=== PATIENT | female | born 2000 | race Two or more races ===

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

== ENCOUNTER 2022-07-23 19:43 | Emergency (ER) | payer MEDICAID ==
[~2022-07-23] VITALS: Ht 170.2 cm; Wt 65.6 kg
[2022-07-23 20:24] VITALS: BP 106/52
[2022-07-23] MEDS ORDERED: AMOX875T4 PO (22:00)
[2022-07-23] MEDS ORDERED: COR10OTS OT (22:00)
== END 2022-07-23 23:15 | disposition home or self-care (01) ==
LOC: ER 19:45
DX: H66.92 Otitis media, unspecified, left ear (principal); Z88.1 Allergy status to other antibiotic agents
CPT/HCPCS: 70450

== ENCOUNTER 2022-08-31 12:23 | Emergency (ER) | payer MEDICAID ==
[~2022-08-31] VITALS: Ht 170.2 cm; Wt 64.9 kg
[~2022-08-31 12:23] MED LIST: AMOX875T4 PO; COR10OTS OT
[2022-08-31 14:09] VITALS: BP 103/53
[2022-08-31] MEDS ORDERED: CIPR1SUS8 OT (14:59)
[2022-08-31] MEDS ORDERED: CEFU500T43 PO (14:59)
== END 2022-08-31 15:13 | disposition home or self-care (01) ==
LOC: ER 12:23
DX: H66.92 Otitis media, unspecified, left ear (principal); Z79.899 Other long term (current) drug therapy

== ENCOUNTER 2022-11-13 12:28 | Emergency (ER) | payer MEDICAID, OTHER ==
[~2022-11-13] VITALS: Ht 167.6 cm; Wt 60.0 kg
[~2022-11-13 12:28] MED LIST changes: +CEFU500T43 PO; +CIPR1SUS8 OT
[2022-11-13 14:22] VITALS: BP 122/66; PULSE 65; RESP 20; O2SAT 97
[2022-11-13] MEDS ORDERED: ACETAMINOPHEN 325 MG TAB PO ONE (14:45)
[2022-11-13 14:55] VITALS: TEMP 97.9
[2022-11-13] MEDS ORDERED: METH-1181 PO (15:08)
[2022-11-13] MEDS ORDERED: NAPR-746 PO (15:08)
== END 2022-11-13 15:12 | disposition home or self-care (01) ==
LOC: ER 12:28
DX: S16.1XXA Strain of muscle, fascia and tendon at neck level, initial encounter (principal); Z79.899 Other long term (current) drug therapy; V49.88XA Car occupant (driver) (passenger) injured in other specified transport accidents, initial encounter; Y93.89 Activity, other specified; Y92.89 Other specified places as the place of occurrence of the external cause; Y99.8 Other external cause status
CPT/HCPCS: 72040

== ENCOUNTER 2023-07-07 14:07 | Emergency (ER) | payer MEDICAID, OTHER ==
[~2023-07-07] VITALS: Ht 167.6 cm; Wt 74.7 kg
[~2023-07-07 14:07] MED LIST changes: +METH-1181 PO; +NAPR-746 PO
[2023-07-07 14:59] VITALS: RESP 16
[2023-07-07 15:26] LABS: Urine Bacteria None Seen /hpf (None Seen)
[2023-07-07 15:35] LABS: Basophils # (auto) 0.1 10 ^3/uL (0-0.2); Basophils % (auto) 0.6 % (0.0-2.0); Eosinophils # (auto) 0.1 10 ^3/uL (0-0.8); Eosinophils % (auto) 0.6 % (0.0-7.0); Hematocrit 43.5 % (36.0-46.0); Hemoglobin 14.1 g/dL (12.2-16.2); Lymphocytes # (auto) 1.9 10 ^3/uL (0.4-5.4); Lymphocytes % (auto) 19.9 % (10.0-50.0); Mean Corpuscular Hemoglobin 27.4 pg (28.0-32.0); Mean Corpuscular Hgb Conc. 32.5 g/dL (32.0-36.0); Mean Corpuscular Volume 84.5 fL (80.0-100.0); Monocytes # (auto) 0.5 10 ^3/uL (0-1.3); Monocytes % (auto) 5.2 % (0.0-12.0); Neutrophils % (auto) 73.7 % (37.0-80.0); Red Blood Cells 5.15 10^6/uL (4.0-5.20); Red Cell Distribution Width 14.4 % (11.8-14.3); White Blood Cell 9.4 10^3/uL (4.4-10.8)
[2023-07-07 15:45] LABS: Urine Blood 2+ /uL (Negative); Urine Clarity Turbid (Clear); Urine Color Light-Orange (Yellow); Urine Mucus FEW (None Seen); Urine Protein, UAD 3+ (Negative); Urine Specific Gravity 1.032 (1.001-1.035); Urine Urobilinogen Normal (Negative); Urine WBC 7 /hpf (0 - 5); Urine pH 8.5 (5.0-9.0)
[2023-07-07 15:55] LABS: Alanine Aminotransferase 19 U/L (7-40); Albumin 4.8 g/dL (3.2-4.8); Alkaline Phosphatase 90 U/L (46-116); Anion Gap 8 (5-15); Aspartate Aminotransferase 20 U/L (13-40); BUN/Creatinine Ratio 14.5 (10.0-20.0); Blood Urea Nitrogen 10 mg/dL (9-23); Calcium 10.1 mg/dL (8.5-10.1); Carbon Dioxide 28 mmol/L (20-30); Chloride 104 mmol/L (98-107); Glucose 89 mg/dL (74-106); Potassium 4.3 mmol/L (3.5-5.1); Sodium 140 mmol/L (136-145)
[2023-07-07 15:56] LABS: Bilirubin, Total 0.4 mg/dL (0.2-1.0); Total Protein 7.9 g/dL (5.7-8.2)
[2023-07-07 16:49] VITALS: BP 146/70; PULSE 95; TEMP 98; O2SAT 100
== END 2023-07-07 17:07 | disposition home or self-care (01) ==
LOC: ER 14:07
DX: G25.2 Other specified forms of tremor (principal); Z79.899 Other long term (current) drug therapy; Z79.2 Long term (current) use of antibiotics
CPT/HCPCS: 36415; 80053; 81001; 81025; 85025

== ENCOUNTER 2023-11-27 17:39 | Emergency (ER) | payer MEDICAID, OTHER ==
[~2023-11-27] VITALS: Ht 167.6 cm; Wt 63.6 kg
[2023-11-27 17:54] VITALS: PULSE 70; RESP 18; O2SAT 99
[2023-11-27 18:52] LABS: Alanine Aminotransferase 25 U/L (7-40); Albumin 4.6 g/dL (3.2-4.8); Alkaline Phosphatase 84 U/L (46-116); Anion Gap 11 (5-15); Aspartate Aminotransferase 21 U/L (13-40); BUN/Creatinine Ratio 6.5 (10.0-20.0); Bilirubin, Total 0.5 mg/dL (0.2-1.0); Blood Urea Nitrogen 5 mg/dL (9-23); Calcium 9.6 mg/dL (8.7-10.4); Carbon Dioxide 21 mmol/L (20-31); Chloride 108 mmol/L (98-107); Glucose 110 mg/dL (74-106); Sodium 140 mmol/L (136-145); Total Protein 7.9 g/dL (5.7-8.2)
[2023-11-27 18:58] LABS: Urine Bacteria None Seen /hpf (None Seen)
[2023-11-27 19:13] LABS: Urine Blood 3+ /uL (Negative); Urine Clarity Turbid (Clear); Urine Color Yellow (Yellow); Urine Mucus FEW (None Seen); Urine Protein, UAD 4+ (Negative); Urine Specific Gravity 1.024 (1.001-1.035); Urine Urobilinogen 2 mg/dL (Negative); Urine WBC 2 /hpf (0 - 5); Urine pH 8.5 (5.0-9.0)
[2023-11-27 19:23] VITALS: BP 95/51; PULSE 66; RESP 17; TEMP 98.4; O2SAT 100
[2023-11-27] MEDS: POTASSIUM CHL 20 Meq TABLET PO ONE (20:07)
== END 2023-11-27 20:18 | disposition home or self-care (01) ==
LOC: EDBD 17:39 → EDSEX 17:39 → ER 17:39
DX: R56.9 Unspecified convulsions (principal); R10.2 Pelvic and perineal pain; E87.6 Hypokalemia
CPT/HCPCS: 36415; 80053; 81001; 84702; 99291

== ENCOUNTER 2024-06-24 00:22 | Inpatient (IN) | payer MEDICAID ==
[~2024-06-24] VITALS: Ht 167.6 cm; Wt 65.4 kg
[2024-06-24 00:47] LABS: Basophils # (auto) 0.1 10 ^3/uL (0-0.2); Basophils % (auto) 0.7 % (0.0-2.0); Eosinophils # (auto) 0.2 10 ^3/uL (0-0.8); Eosinophils % (auto) 1.6 % (0.0-7.0); Hematocrit 36.8 % (36.0-46.0); Hemoglobin 12.5 g/dL (12.2-16.2); Lymphocytes # (auto) 3.3 10 ^3/uL (0.4-5.4); Lymphocytes % (auto) 34.3 % (10.0-50.0); Mean Corpuscular Hemoglobin 29.3 pg (28.0-32.0); Mean Corpuscular Hgb Conc. 34.1 g/dL (32.0-36.0); Mean Corpuscular Volume 86.1 fL (80.0-100.0); Monocytes # (auto) 0.9 10 ^3/uL (0-1.3); Monocytes % (auto) 9.4 % (0.0-12.0); Neutrophils # (auto) 5.2 10 ^3/uL (1.6-8.6); Nucleated Red Blood Cells % 0.1 %; Platelet Count (auto) 362 10^3/uL (140-450); Red Blood Cells 4.28 10^6/uL (4.0-5.20); White Blood Cell 9.6 10^3/uL (4.4-10.8)
[2024-06-24] MEDS: levETIRAcetam 1000 mg/100ml 200 ML IV ONE (00:48)
[2024-06-24] MEDS: SODIUM CHLORIDE 0.9% 1,000 ML IV ONE ×2 (00:48→06:06)
--- NOTE | 2024-06-24 00:52 | ED.PDOC ---
HPI (NEURO) HPI Comments 24-year-old female came to ER via EMS for seizures. History of seizures, but has poor compliance to her medications. According to family member, patient has seizure episodes daily, at bedtime. Patient had 2 witnessed seizures earlier tonight, with the 2nd one having her fall face 1st on the floor, hitting her face multiple times on the floor as she kept seizing. Noted laceration on her nasal bridge. Patient has no recollection of what happened. Upon arrival paramedics, noted blood sugar levels of 40. Patient apparently has been refusing to eat recently. 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 Notes Information Source: Relative (Sibling), Emergency Med Personnel Mode of Arrival: EMS Severity: Moderate Dizziness/Weakness Severity: Unable to do activities Headache Severity: Moderate Timing: Minutes Duration: Since onset Prehospital treatment: Accucheck, IVF Seizure Quality: Tonic-clonic Headache Quality: Throbbing, Aching Headache Location: Generalized Weakness Location: Generalized Numbness Location: Generalized Seizure Location: Generalized Onset: At rest Circumstances: Spontaneous Symptoms: Weakness Before: Normal During: LOC After: Confusion, Headache History of: Seizure Disorder Associated Signs and Symptoms: Altered Mental Status Past Medical History PAST MEDICAL HISTORY: Seizures Surgical History: Denies all surgeries AUTOMATION QA TESTER History: No Pertinent AUTOMATION QA TESTER History Family History Family History: Reviewed,noncontributory to illness Social History Smoker: Non-Smoker Alcohol: Denies ETOH Use Drugs: Denies Drug Use Lives In: Home Unable to Obtain due to: Altered Mental Status, Other (Patient is postictal) Physical Exam General Appearance: No Apparent Distress, Normal HEENT: Normal ENT Inspection, Pharynx Normal, TMs Normal Neck: Full Range of Motion, Non-Tender, Normal, Normal Inspection Respiratory: Chest Non-Tender, Lungs Clear, No Accessory Muscle Use, No Respiratory Distress, Normal Breath Sounds Cardiovascular: No Edema, No JVD, No Murmur, No Gallop, Normal Peripheral Pulses, Regular Rate/Rhythm Breast Exam: Deferred Gastrointestinal: No Organomegaly, Non Tender, No Pulsatile Mass, Normal Bowel Sounds, Soft Genitalia: Deferred Pelvic: Deferred Rectal: Deferred Extremities: No calf tenderness, Normal capillary refill, Normal inspection, Normal range of motion, Non-tender, No pedal edema Musculoskeletal : Apperance: Normal 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 Was a procedure done?: Yes Sedation Sedation?: No Laceration Repair : Location nasal bridge Length 1cm Anesthetic: Nothing Laceration Repair Prep: Shbabak-Naunns Laceration Repair Wound Comple: epidermis/dermis repair Laceration Repair: Dermabond Informed consent obtained: Yes Risks, benefits, and alternati: Yes Differential Diagnosis (SZ) Seizure: Closed Head Injury, Hypoglycemia, Hypoxemia, Idiopathic, Epilepsy- Break Through, Epilepsy-Status X-Ray, Labs, Meds, VS Vital Signs Date Time Temp Pulse Resp B/P (MAP) Pulse Ox O2 Delivery O2 Flow Rate FiO2 06/24/24 02:28 80 10 92/48 06/24/24 01:58 77 12 104/56 06/24/24 01:00 97.9 77 12 104/56 (72) 98 97.9 06/24/24 00:22 98.7 76 16 110/73 (85) 98 98.7 Lab Test 06/24/24 00:36 Range/Units White Blood Count 9.6 4.4-10.8 10^3/uL Red Blood Count 4.28 4.0-5.20 10^6/uL Hemoglobin 12.5 12.2-16.2 g/dL Hematocrit 36.8 36.0-46.0 % Mean Corpuscular Volume 86.1 80.0-100.0 fL Mean Corpuscular Hemoglobin 29.3 28.0-32.0 pg Mean Corpuscular Hemoglobin Concent 34.1 32.0-36.0 g/dL Red Cell Distribution Width 15.0 H 11.8-14.3 % Platelet Count 362 140-450 10^3/uL Mean Platelet Volume 7.5 6.9-10.8 fL Neutrophils (%) (Auto) 54.0 37.0-80.0 % Lymphocytes (%) (Auto) 34.3 10.0-50.0 % Monocytes (%) (Auto) 9.4 0.0-12.0 % Eosinophils (%) (Auto) 1.6 0.0-7.0 % Basophils (%) (Auto) 0.7 0.0-2.0 % Neutrophils # (Auto) 5.2 1.6-8.6 10 ^3/uL Lymphocytes # (Auto) 3.3 0.4-5.4 10 ^3/uL Monocytes # (Auto) 0.9 0-1.3 10 ^3/uL Eosinophils # (Auto) 0.2 0-0.8 10 ^3/uL Basophils # (Auto) 0.1 0-0.2 10 ^3/uL Nucleated Red Blood Cells 0.1 % Sodium Level 138 136-145 mmol/L Potassium Level 2.3 *L 3.5-5.1 mmol/L Chloride Level 100 98-107 mmol/L Carbon Dioxide Level 28 20-31 mmol/L Anion Gap 10 5-15 Blood Urea Nitrogen 7 L 9-23 mg/dL Creatinine 0.77 0.550-1.02 mg/dL Glomerular Filtration Rate Calc 110 >90 mL/min BUN/Creatinine Ratio 9.1 L 10.0-20.0 Serum Glucose 104 74-106 mg/dL Calcium Level 9.6 8.7-10.4 mg/dL Current Medications Medications (Trade) Dose Ordered Sig/Shaan Route Start Time Stop Time Status Last Admin Sodium Chloride 1,000 ml @ 1,000 mls/hr Q1H ONCE IV 06/24/24 00:30 06/24/24 01:29 DC 06/24/24 00:48 Levetiracetam 200 ml @ 400 mls/hr ONCE ONCE IV 06/24/24 00:30 06/24/24 00:59 DC 06/24/24 00:48 Ondansetron HCl (Zofran) 4 mg ONCE ONCE IV 06/24/24 01:30 06/24/24 01:31 DC 06/24/24 01:33 Morphine Sulfate 4 mg ONCE ONCE IV 06/24/24 02:00 06/24/24 02:01 DC 06/24/24 01:58 Time of 1ST Reevaluation: 00:44 Reevaluation 1ST: Unchanged Patient Education/Counseling: Diagnosis, Treatment Family Education/Counseling: No Family Present Departure 1 Departure Time of Disposition: 02:42 (Patient with multiple seizures and hypokalemia. We will admit patient for further workup and expert consultation) Impression: Primary Impression: Seizure disorder Additional Impressions: Facial laceration Qualified Codes: S01.81XA - Laceration without foreign body of other part of head, initial encounter Hypokalemia Disposition: ADMITTED INPATIENT Admit to: Med Surg Condition: Serious Critical Care Note Critical Care Time?: Yes (45 min-critical care time only) Critical care comment: Hypoglycemia, postictal seizure Authorized and Performed by: Chase Cat MD Total critical care time: Approximately 38 minutes Due to a high probability of clinically significant, life threatening deterioration, the patient required my highest level of preparedness to intervene emergently and I personally spent this critical care time directly and personally managing the patient. This critical care time included obtaining a history; examining the patient; pulse oximetry; ordering and review of studies; arranging urgent treatment with development of a management plan; evaluation of patient's response to treatment; frequent reassessment; and, discussions with other providers. This critical care time was performed to assess and manage the high probability of imminent, life-threatening deterioration that could result in multi-organ failure. It was exclusive of separately billable procedures and treating other patients and teaching time. Please see my other sections and the rest of the note for further information on patient assessment and treatment. Stability Stability form required: No Heart Score Heart Score: Heart Score Response (Comments) Value History N/A 0 EKG N/A 0 Age N/A 0 Risk Factors N/A 0 Troponin N/A 0 Total 0 I personally scribed for CHASE CAT MD (DVLARCO) on 06/24/24 at 00:52. Electronically submitted by Horacio Jara ([facility]). CHASE CAT MD June 24, 2024 00:52
[2024-06-24 01:00] VITALS: PULSE 77; RESP 12; O2SAT 65
[2024-06-24 01:00] LABS: Chloride 100 mmol/L (98-107); Sodium 138 mmol/L (136-145)
[2024-06-24 01:01] LABS: Anion Gap 10 (5-15); Carbon Dioxide 28 mmol/L (20-31)
[2024-06-24 01:02] LABS: Calcium 9.6 mg/dL (8.7-10.4)
[2024-06-24 01:05] LABS: Potassium 2.3 mmol/L (3.5-5.1)
[2024-06-24 01:06] LABS: BUN/Creatinine Ratio 9.1 (10.0-20.0); Glucose 104 mg/dL (74-106)
[2024-06-24 01:07] LABS: Blood Urea Nitrogen 7 mg/dL (9-23)
[2024-06-24] MEDS: ONDANSETRON HCL 4 MG/2 ML VIAL IV ONE (01:33)
[2024-06-24] MEDS: MORPHINE SULFATE 4 MG/ML SYR/VIAL IV ONE (01:58)
--- NOTE | 2024-06-24 02:00 | DVH ---
CT HEAD WITHOUT CONTRAST INDICATION: syncope, headstrike, seizure COMPARISON: CT HEAD WITHOUT CONTRAST on DOS: 07/23/22 TECHNIQUE: CT of the head without intravenous contrast. RADIATION DOSE: CTDIvol: mGy, DLP: mGy*cm FINDINGS: There is no evidence of intracranial hemorrhage, infarct, extra-axial collection, mass effect, midli ne shift, herniation or hydrocephalus. The ventricles, sulci and cisterns are normal. The lorenz-white differentiation is normal. Visualized paranasal sinuses and mastoid air cells are clear. Evidence of mild soft tissue swelling a nd laceration overlying the nose with non displaced nasal bone fracture. No calvarial abnormality/fra cture. IMPRESSION: No intracranial abnormality. Non displaced nasal bone fracture.
[2024-06-24] MEDS ORDERED: DOCUSATE SOD 100 MG CAP PO PRN (03:15)
[2024-06-24] MEDS: TETANUS-DIPTH-ACEL PERTUSSIS 0.5ML SYR Tdap IM ONE (03:15)
[2024-06-24] MEDS ORDERED: HYDROcodone-ACET 5/325MG TAB PO PRN (03:15)
[2024-06-24] MEDS ORDERED: ACETAMINOPHEN 325 MG TAB PO PRN (03:15)
[2024-06-24] MEDS ORDERED: ONDANSETRON HCL 4 MG/2 ML VIAL IV PRN (03:15)
[2024-06-24] MEDS ORDERED: LORazepam 2MG/ML-1ML VIAL IV PRN (03:15)
--- NOTE | 2024-06-24 03:29 | DVHHP2 ---
History of Present Illness Reason for Visit: Seizure disorder History of Present Illness The patient is a 24-year-old female with past medical history of seizure who presented to [facility] ED for evaluation of seizures activity. As reported by family member, patient has been having episode of seizures daily at bedtime, had two witnessed seizure earlier with 2nd one falling to the floor on her face with sustained injury on her nasal bridge. Patient was seen and evaluated in the ED, laboratory data shows WBC 9.6, platelets 362, sodium 138, potassium 2.3, BUN 7, creatinine 0.77, glucose 104, blood pressure 92/48, heart rate 80, temperature 97.9 F, O2 saturation 98% on oxygen. Patient was started on IV Keppra, please see medication orders section in the computer. On my assessment, family member at bedside, patient denied chest pain, no headache, no dizziness, no blurry vision, no diaphoresis, no shortness of breaths, no nausea, no vomiting, no fever, no chills. Patient was admitted for further evaluation and medical management. Past Medical History Seizures Past Surgical History Denies all surgeries Family History Reviewed, noncontributory to the management of this case. Past Social History The patient lives at home, denies smoking, alcohol or illicit drugs abuse. Review of Systems Constitutional: No: Fever, Chills, Sweats, Weakness, Malaise, Other Eyes: No: Pain, Vision change, Conjunctivae inflammation, Eyelid inflammation, Other, Redness ENT: No: Ear pain, Ear discharge, Nose pain, Nose discharge, Nose congestion, Mouth pain, Mouth swelling, Throat pain, Throat swelling, Other Respiratory: No: Cough, Dry, Shortness of breath, SOB with excertion, Wheezing, Hemoptysis, Pleuritic Pain, Sputum, Wheezing, Other Cardiovascular: No: Chest Pain, Palpitations, Orthopnea, Paroxysmal Noc. Dyspnea, Edema, Lt Headedness, Other Gastrointestinal: No: Nausea, Vomiting, Abdominal Pain, Diarrhea, Constipation, Melena, Hematochezia, Other Genitourinary: No Dysuria, No Frequency, No Incontinence, No Hematuria, No Retention, No Other Musculoskeletal: No: other, neck pain, shoulder pain, arm pain, back pain, hand pain, leg pain, foot pain Skin: No: Rash, Lesions, Jaundice, Bruising, Other Neurological: Seizures; No: Weakness, Numbness, Incoordination, Change in speech, Confusion, Other Allergies: Coded Allergies: NO KNOWN ALLERGIES (Unverified , 11/23/12) Medications Current Medications Medications Dose Ordered Sig/Shaan Route Start Time Stop Time Status Last Admin Dose Admin Potassium Chloride 100 ml @ 50 mls/hr Q2H IV 06/24/24 02:45 06/24/24 10:44 UNV Levetiracetam 100 ml @ 400 mls/hr BID IV 06/24/24 10:00 UNV Lorazepam 1 mg Q2HP PRN IV 06/24/24 03:15 UNV Sodium Chloride 10 ml Q8HR IV 06/24/24 06:00 UNV Acetaminophen/ Hydrocodone Bitart 1 tab Q4HP PRN PO 06/24/24 03:15 UNV Ondansetron HCl 4 mg Q4HP PRN IV 06/24/24 03:15 UNV Docusate Sodium 100 mg BIDPRN PRN PO 06/24/24 03:15 UNV Acetaminophen 650 mg Q6HP PRN PO 06/24/24 03:15 UNV Exam Vital Signs Vital Signs Date Time Temp Pulse Resp B/P (MAP) Pulse Ox O2 Delivery O2 Flow Rate FiO2 06/24/24 03:00 78 13 91/52 (65) 97 06/24/24 01:00 97.9 97.9 06/24/24 01:00 Room Air* 0 21 General Appearance: Alert, Oriented X3, Cooperative, No acute distress HEENT: Atraumatic, PERRLA, EOMI, Mucous membr. moist/pink Respiratory: Clear to auscultation, Normal air movement Cardiovascular: Regular rate, Normal S1, Normal S2, No murmurs Abdominal: Normal bowel sounds, Soft, No tenderness, No hepatospenomegaly, No masses Extremities: No clubbing, No cyanosis, No edema, Normal pulses, No tenderness/swelling Skin: No rashes, No breakdown, No significant lesion Neuro: Normal gait, Normal speech, Strength at 5/5 X4 ext, Normal tone, Sensation intact, Cranial nerves 3-12 NL, Reflexes 2+ Psych/Mental Status: Mental status NL, Mood NL Labs/Xrays Labs Test 06/24/24 00:36 Range/Units White Blood Count 9.6 4.4-10.8 10^3/uL Red Blood Count 4.28 4.0-5.20 10^6/uL Hemoglobin 12.5 12.2-16.2 g/dL Hematocrit 36.8 36.0-46.0 % Mean Corpuscular Volume 86.1 80.0-100.0 fL Mean Corpuscular Hemoglobin 29.3 28.0-32.0 pg Mean Corpuscular Hemoglobin Concent 34.1 32.0-36.0 g/dL Red Cell Distribution Width 15.0 H 11.8-14.3 % Platelet Count 362 140-450 10^3/uL Mean Platelet Volume 7.5 6.9-10.8 fL Neutrophils (%) (Auto) 54.0 37.0-80.0 % Lymphocytes (%) (Auto) 34.3 10.0-50.0 % Monocytes (%) (Auto) 9.4 0.0-12.0 % Eosinophils (%) (Auto) 1.6 0.0-7.0 % Basophils (%) (Auto) 0.7 0.0-2.0 % Neutrophils # (Auto) 5.2 1.6-8.6 10 ^3/uL Lymphocytes # (Auto) 3.3 0.4-5.4 10 ^3/uL Monocytes # (Auto) 0.9 0-1.3 10 ^3/uL Eosinophils # (Auto) 0.2 0-0.8 10 ^3/uL Basophils # (Auto) 0.1 0-0.2 10 ^3/uL Nucleated Red Blood Cells 0.1 % Sodium Level 138 136-145 mmol/L Potassium Level 2.3 *L 3.5-5.1 mmol/L Chloride Level 100 98-107 mmol/L Carbon Dioxide Level 28 20-31 mmol/L Anion Gap 10 5-15 Blood Urea Nitrogen 7 L 9-23 mg/dL Creatinine 0.77 0.550-1.02 mg/dL Glomerular Filtration Rate Calc 110 >90 mL/min BUN/Creatinine Ratio 9.1 L 10.0-20.0 Serum Glucose 104 74-106 mg/dL Calcium Level 9.6 8.7-10.4 mg/dL PATIENT: JANE SKINNERDMITRYEACCT: [id number] UNIT: [id number] : 2000 LOC: ER ROOM / BED: / AGE / SEX: 24 / F ADM STATUS: REG ER SERVICE [id number] ORDERING PHYSICIAN: CHASE RITCHIE MD PROCEDURE(s): HWOCT - HEAD WITHOUT CONTRAST REASON: syncope, headstrike, seizure ORDER NUMBER(s): [id number], ACCESSION NUMBER(s): [id number] CT HEAD WITHOUT CONTRAST INDICATION: syncope, headstrike, seizure COMPARISON: CT HEAD WITHOUT CONTRAST on DOS: 07/23/22 TECHNIQUE: CT of the head without intravenous contrast. RADIATION DOSE: CTDIvol: mGy, DLP: mGy*cm FINDINGS: There is no evidence of intracranial hemorrhage, infarct, extra-axial collection, mass effect, midline shift, herniation or hydrocephalus. The ventricles, sulci and cisterns are normal. The lorenz-white differentiation is n ormal. Visualized paranasal sinuses and mastoid air cells are clear. Evidence of mild soft tissue swelling and laceration overlying the nose with non displaced nasal bone fracture. No calvarial abnormality/fracture. IMPRESSION: No intracranial abnormality. Non displaced nasal bone fracture. Assessment/Plan Assessment/Plan Seizure disorder Hypokalemia Facial laceration Laceration without foreign body of other part of head, initial encounter Plan 1. Admit to telemetry unit 2. Breathing treatment 3. Pain control management 4. Management of fluids and electrolytes 5. Consultation for neurology 6. Diagnostic tests head CT 7. DVT prophylaxis-on SCDs 8. Repeat labs CBC, CMP in a.m. 9. Continue with current medical management 10. Treatment plan discussed with patient and RN. Patient/mother verbalized understanding. Plan discussed with: Patient, Other (RN) My Orders Orders - JOHN MARRUFO DNP Procedure Category Date Status Time Complete Blood Count LAB 06/24/24 Logged 04:00 Basic Metabolic Panel LAB 06/24/24 Logged 04:00 Levetiracetam 500 PHA 06/24/24 Logged Mg/100ml (Levetiraceta 10:00 Lorazepam 2mg/Ml Inj PHA 06/24/24 Logged (Ativan Inj) 03:15 Allergies CHUCKY 06/24/24 In Process 03:03 Code Status CODE 06/24/24 Transmitted 03:03 2 Gm Sodium Diet DIET 06/24/24 Transmitted Breakfast Sodium Chloride Lock PHA 06/24/24 Logged (Saline Lock Ns) 06:00 Oxygen Per Hour RT 06/24/24 Transmitted 03:03 Hydrocodone-Acet PHA 06/24/24 Logged 5/325mg Tab ([place] 03:15 Ondansetron Hcl PHA 06/24/24 Logged (Zofran) 03:15 Docusate Sodium PHA 06/24/24 Logged Capsule (Colace 03:15 Fall Risk Precautions CHUCKY 06/24/[address] 03:03 Complete Blood Count LAB 06/25/24 Verified 04:00 Condition: Serious CHUCKY 06/24/24 In Process 03:03 Acetaminophen Tablet PHA 06/24/24 Logged (Tylenol Tablet) 03:15 Maintain Bed Rest CHUCKY 06/24/24 In Process 03:03 Sequential CHUCKY 06/24/24 In Process Compression Device Basic Metabolic Panel LAB 06/25/24 Verified 04:00 * Neurology Consult CONS 06/24/24 Transmitted 03:07 Problem List: (1) Seizure disorder (2) Hypokalemia (3) Facial laceration (4) Laceration without foreign body of other part of head, initial encounter Date of Service: June 24, 2024 Billing Provider: JOHN MARRUFO DNP Common Visit Codes: [id number] INP/OBS CARE (HIGH) JOHN MARRUFO DNP June 24, 2024 03:29
[2024-06-24] MEDS ORDERED: MORPHINE SULFATE INJ 2 MG/ml SYRG IV PRN (03:30)
[2024-06-24] MEDS ORDERED: NITROGLYCERIN 0.4 MG SL TAB SL PRN (03:30)
[2024-06-24] MEDS ORDERED: POTASSIUM CHL 20MEQ/100ML 100 ML IV SCH (03:45)
[2024-06-24 03:57] LABS: Basophils # (auto) 0 10 ^3/uL (0-0.2); Basophils % (auto) 0.2 % (0.0-2.0); Eosinophils # (auto) 0 10 ^3/uL (0-0.8); Eosinophils % (auto) 0.1 % (0.0-7.0); Hematocrit 34.1 % (36.0-46.0); Hemoglobin 11.3 g/dL (12.2-16.2); Lymphocytes # (auto) 0.8 10 ^3/uL (0.4-5.4); Lymphocytes % (auto) 5.6 % (10.0-50.0); Mean Corpuscular Hemoglobin 28.8 pg (28.0-32.0); Mean Corpuscular Hgb Conc. 33.3 g/dL (32.0-36.0); Mean Corpuscular Volume 86.4 fL (80.0-100.0); Monocytes # (auto) 0.6 10 ^3/uL (0-1.3); Monocytes % (auto) 4.2 % (0.0-12.0); Neutrophils # (auto) 12.9 10 ^3/uL (1.6-8.6); Neutrophils % (auto) 89.9 % (37.0-80.0); Platelet Count (auto) 326 10^3/uL (140-450); Red Blood Cells 3.94 10^6/uL (4.0-5.20); Red Cell Distribution Width 15.1 % (11.8-14.3); White Blood Cell 14.3 10^3/uL (4.4-10.8)
[2024-06-24 04:12] LABS: Chloride 103 mmol/L (98-107); Sodium 140 mmol/L (136-145)
[2024-06-24 04:13] LABS: Anion Gap 10 (5-15); Carbon Dioxide 27 mmol/L (20-31)
[2024-06-24 04:18] LABS: BUN/Creatinine Ratio 12.3 (10.0-20.0); Glucose 97 mg/dL (74-106)
[2024-06-24 04:20] LABS: Blood Urea Nitrogen 7 mg/dL (9-23); Calcium 8.5 mg/dL (8.7-10.4); Potassium 2.8 mmol/L (3.5-5.1)
[2024-06-24] MEDS: POTASSIUM CHL 20MEQ/50ML 50 ML IV SCH (04:52)
[2024-06-24] MEDS: SODIUM CHL 0.9% 100 ML IV SCH (04:53)
[2024-06-24] MEDS: SODIUM CHLOR 0.9% PF (SALINE LOCK) 10ML VIAL/SYR IV SCH (06:06)
[2024-06-24 07:22] VITALS: PULSE 67; RESP 12; O2SAT 96
[2024-06-24 10:25] LABS: Urine Bacteria FEW /hpf (None Seen); Urine Blood Negative /uL (Negative); Urine Color Yellow (Yellow); Urine Mucus FEW (None Seen); Urine Protein, UAD TRACE (Negative); Urine Specific Gravity 1.019 (1.001-1.035); Urine Squamous Epithelial Cell FEW /hpf (<5); Urine Urobilinogen Normal (Negative); Urine WBC 2 /HPF (0-5)
[2024-06-24 10:27] LABS: Urine Clarity Hazy (Clear)
[2024-06-24] MEDS: levETIRAcetam 500 mg/100ml 100 ML IV SCH (10:47)
[2024-06-24 14:50] VITALS: RESP 16; O2SAT 100
[2024-06-24] MEDS ORDERED: POTASSIUM CHL 20MEQ/50ML 50 ML IV SCH (15:15)
[2024-06-24] MEDS: POTASSIUM CHL 20MEQ/50ML 50 ML IV ONE (15:27)
[2024-06-24] MEDS: SODIUM CHL 0.9% 100 ML IV ONE (15:28)
--- NOTE | 2024-06-24 15:36 | DVHPN2 ---
Subjective The patient is seen and examined at bedside. Still confused and groggy, postictal Reviewed: Care Plan, H&P, Labs, Medications, Previous Orders, Radiology Changes from previous H/P or p: No Changes Eyes: No Pain, No Vision change, No Conjunctivae inflammation, No Eyelid inflammation, No Other, No Redness ENT: No Ear pain, No Ear discharge, No Nose pain, No Nose discharge, No Nose congestion, No Mouth pain, No Mouth swelling, No Throat pain, No Throat swelling, No Other Cardiovascular: No Chest Pain, No Palpitations, No Orthopnea, No Paroxysmal Noc. Dyspnea, No Edema, No Lt Headedness, No Other Respiratory: No Cough, No Dry, No Shortness of breath, No SOB with excertion, No Wheezing, No Hemoptysis, No Pleuritic Pain, No Sputum, No Other Gastrointestinal: No Nausea, No Vomiting, No Abdominal Pain, No Diarrhea, No Constipation, No Melena, No Hematochezia, No Other Genitourinary: No Dysuria, No Frequency, No Incontinence, No Hematuria, No Retention, No Other Musculoskeletal: No other, No neck pain, No shoulder pain, No arm pain, No back pain, No hand pain, No leg pain, No foot pain Skin: No Rash, No Lesions, No Jaundice, No Bruising, No Other Objective Vitals Vital Signs Date Time Temp Pulse Resp B/P (MAP) Pulse Ox O2 Delivery O2 Flow Rate FiO2 06/24/24 13:00 58 11 95/55 (68) 96 06/24/24 08:00 98.1 98.1 06/24/24 07:22 Room Air* 0 21 Intake/Output Intake and Output 06/24/24 07:00 Intake Total 1112.5 ml Balance 1112.5 ml Intake IV Total 1112.5 ml General Appearance: Alert, mild distress HEENT: PERRLA, EOMI, Mucous membr. moist/pink, Other (The patient had a bruised and cut across her nose due to fall on her face) Neck: Supple Lungs: Clear to auscultation, Normal air movement Cardiovascular: Regular rate, Normal S1, Normal S2, No murmurs Abdomen: Normal bowel sounds, Soft, No tenderness Neuro: Cranial nerves 3-12 NL Psych/Mental Status: Mental status NL Medications Current Medications Medications Dose Ordered Sig/Shaan Route Start Time Stop Time Status Last Admin Dose Admin Levetiracetam 100 ml @ 400 mls/hr BID IV 06/24/24 10:00 06/24/24 10:47 400 MLS/HR Lorazepam 1 mg Q2HP PRN IV 06/24/24 03:15 Sodium Chloride 10 ml Q8HR IV 06/24/24 06:00 06/24/24 14:07 10 ML Acetaminophen/ Hydrocodone Bitart 1 tab Q4HP PRN PO 06/24/24 03:15 Ondansetron HCl 4 mg Q4HP PRN IV 06/24/24 03:15 Docusate Sodium 100 mg BIDPRN PRN PO 06/24/24 03:15 Acetaminophen 650 mg Q6HP PRN PO 06/24/24 03:15 Nitroglycerin 0.4 mg Q5MINP PRN SL 06/24/24 03:30 Morphine Sulfate 2 mg Q30M PRN IV 06/24/24 03:30 Laboratory Results Laboratory Tests 06/24/24 03:34 Chemistry Test 06/24/24 00:36 06/24/24 03:34 Calcium Level 9.6 mg/dL (8.7-10.4) 8.5 mg/dL (8.7-10.4) L Urinalysis Test 06/24/24 10:18 Urine Color Yellow (Yellow) Urine Clarity Hazy (Clear) H Urine pH 8.0 (5.0-9.0) Urine Specific Wright 1.019 (1.001-1.035) Urine Protein Trace (Negative) H Urine Ketones 1+ (Negative) H Urine Blood Negative /uL (Negative) Urine Nitrite Negative (Negative) Urine Bilirubin Negative (Negative) Urine Urobilinogen Normal mg/dL (Negative) Urine Leukocyte Esterase Negative /uL (Negative) Urine RBC 1 /hpf (0 - 4) Urine Microscopic WBC 2 /HPF (0-5) Urine Squamous Epithelial Cells Few /hpf (<5) Urine Bacteria Few /hpf (None Seen) H Urine Mucus Few (None Seen) Urine Glucose 1+ mg/dL (Normal) H Labs and/or images reviewed: Labs reviewed by me Assessment/Plan Assessment/Plan Seizure disorder Hypokalemia Facial laceration Laceration without foreign body of other part of head, initial encounter Continuing current management. Continuing with Keppra IV. Continuing with Ativan PRN for active seizing Waiting for 2D echo. Replace electrolytes as needed. Waiting for neurologist to see the patient. Continuing with pain medication. Discussed with patient in at bedside regarding to plan of care This medical document was created using an electronic medical record system with [employer] direct computerized dictation system. Although this document has been carefully reviewed, there may still be some phonetic and typographical errors. These areas are purely typographical due to imperfections of the software programs, and do not reflect any compromise in the patient's medical care. Plan discussed with: Patient Date of Service: June 24, 2024 Billing Provider: RONNA GUALLPA MD Common Visit Codes: [id number] INP/OBS CARE(HIGH) RONNA GUALLPA MD June 24, 2024 15:36
[2024-06-24 16:42] VITALS: BP 110/70; PULSE 60; RESP 17; TEMP 98.2; O2SAT 100
--- NOTE | 2024-06-24 18:24 | BSKYNEURO ---
[facility] Note # Demographics Consult Type: General Neurology Patient Location: Inpatient First Name: Regla Last Name: Eric Vance Date of : 2000 Age: 24 Gender: Female Facility: [facility] Time of Initial Page ([place] Time): 06/24/2024 17:42 Time of Return Call ([place] Time): 06/24/2024 17:43 # HPI History: Patient is currently admitted after she had a seizure at home. She had 2 seizure yesterday and hit her face and had injury to her face. H/O seizure since nov 2016- topiramate 150 mg bid and gabapentin 75 mg 3 times a week. H/O meningitis in 2017. # Exam Mental Status: - awake - alert and oriented x 3 Language: - no dysarthria - normal speech - no aphasia # Assessment Impression: - Seizure H/o seizures; had meningitis in the past. On topiramate 150 mg bid. # Plan Labs: - comprehensive metabolic panel - CBC - ua - urine drug screen - ESR Imaging: (urgency: routine): - MRI Brain with AND without contrast Diagnostic Test: - EEG Medication: -Increase home dose of topiramate to 200 mg bid -Start vimpat 200 mg bid Other: - If patient has any neurological deterioration please call me back immediately - seizure precautions - I have discussed my recommendations with the referring provider - neurology referral as outpatient - telemetry monitoring Additional Recommendations: -No driving till cleared by neurology as outpatient # Logistics Attestation of consult completion: The patient is located at: [facility]. Facility staff participated in the visit. I performed this telemedicine visit from my offsite office utilizing interactive 2 way audio and visual telecommunication technology. Total time spent in telemedicine encounter: I spent 10 minutes reviewing clinical data and/or imaging, obtaining history, examining the patient, communicating with the onsite care team, and in preparation of this report. # Demographics First Name: Regla Last Name: Eric Vance Facility: [facility] Yes JANETTE GUERRERO MD June 24, 2024 18:24
[2024-06-24 20:00] VITALS: PULSE 64; PULSE 67; RESP 15; O2SAT 100
[2024-06-24 21:00] VITALS: BP 99/55; PULSE 64; RESP 15; TEMP 99; O2SAT 100
[2024-06-25] VITALS (9 sets, daily range): BP systolic 98–110; BP diastolic 53–69; PULSE 53–86; RESP 15–20; TEMP 98.1–99; O2SAT 96–100
[2024-06-25 05:48] LABS: Basophils # (auto) 0 10 ^3/uL (0-0.2); Basophils % (auto) 0.6 % (0.0-2.0); Eosinophils # (auto) 0.2 10 ^3/uL (0-0.8); Eosinophils % (auto) 2.3 % (0.0-7.0); Hematocrit 33.5 % (36.0-46.0); Lymphocytes # (auto) 3.1 10 ^3/uL (0.4-5.4); Lymphocytes % (auto) 46.3 % (10.0-50.0); Mean Corpuscular Hgb Conc. 32.9 g/dL (32.0-36.0); Monocytes # (auto) 0.7 10 ^3/uL (0-1.3); Monocytes % (auto) 9.8 % (0.0-12.0); Neutrophils # (auto) 2.7 10 ^3/uL (1.6-8.6); Nucleated Red Blood Cells % 0.1 %; Platelet Count (auto) 290 10^3/uL (140-450); Red Blood Cells 3.81 10^6/uL (4.0-5.20); Red Cell Distribution Width 15.6 % (11.8-14.3); White Blood Cell 6.7 10^3/uL (4.4-10.8)
[2024-06-25 05:59] LABS: Potassium 3.9 mmol/L (3.5-5.1); Sodium 143 mmol/L (136-145)
[2024-06-25 06:00] LABS: Anion Gap 8 (5-15); Carbon Dioxide 24 mmol/L (20-31)
[2024-06-25 06:05] LABS: Glucose 86 mg/dL (74-106)
[2024-06-25 06:09] LABS: BUN/Creatinine Ratio 8.5 (10.0-20.0); Blood Urea Nitrogen < 5 mg/dL (9-23); Calcium 8.6 mg/dL (8.7-10.4); Chloride 111 mmol/L (98-107)
--- NOTE | 2024-06-25 22:45 | DVHPN2 ---
Subjective The patient is seen and examined at bedside. No seizure activity yesterday or today. Reviewed: Care Plan, H&P, Labs, Medications, Previous Orders, Radiology Changes from previous H/P or p: No Changes Eyes: No Pain, No Vision change, No Conjunctivae inflammation, No Eyelid inflammation, No Other, No Redness ENT: No Ear pain, No Ear discharge, No Nose pain, No Nose discharge, No Nose congestion, No Mouth pain, No Mouth swelling, No Throat pain, No Throat swelling, No Other Cardiovascular: No Chest Pain, No Palpitations, No Orthopnea, No Paroxysmal Noc. Dyspnea, No Edema, No Lt Headedness, No Other Respiratory: No Cough, No Dry, No Shortness of breath, No SOB with excertion, No Wheezing, No Hemoptysis, No Pleuritic Pain, No Sputum, No Other Gastrointestinal: No Nausea, No Vomiting, No Abdominal Pain, No Diarrhea, No Constipation, No Melena, No Hematochezia, No Other Genitourinary: No Dysuria, No Frequency, No Incontinence, No Hematuria, No Retention, No Other Musculoskeletal: No other, No neck pain, No shoulder pain, No arm pain, No back pain, No hand pain, No leg pain, No foot pain Skin: No Rash, No Lesions, No Jaundice, No Bruising, No Other Objective Vitals Vital Signs Date Time Temp Pulse Resp B/P (MAP) Pulse Ox O2 Delivery O2 Flow Rate FiO2 06/25/24 21:00 99.0 86 20 106/69 (81) 100 99.0 06/25/24 08:15 Room Air* 0 21 Intake/Output Intake and Output 06/25/24 07:00 Intake Total 670.0 ml Output Total 200 ml Balance 470.0 ml Intake Oral 345 ml IV Total 325.0 ml Output Urine Total 200 ml # Voids 1 General Appearance: Alert, Cooperative, No acute distress HEENT: Atraumatic, PERRLA, EOMI, Mucous membr. moist/pink Neck: Supple Lungs: Clear to auscultation, Normal air movement Cardiovascular: Regular rate, Normal S1, Normal S2, No murmurs, Gallops, Rubs Abdomen: Normal bowel sounds, Soft, No tenderness Neuro: Cranial nerves 3-12 NL Psych/Mental Status: Mental status NL Medications Current Medications Medications Dose Ordered Sig/Shaan Route Start Time Stop Time Status Last Admin Dose Admin Levetiracetam 100 ml @ 400 mls/hr BID IV 06/24/24 10:00 06/25/24 21:37 400 MLS/HR Lorazepam 1 mg Q2HP PRN IV 06/24/24 03:15 Sodium Chloride 10 ml Q8HR IV 06/24/24 06:00 06/25/24 21:37 10 ML Acetaminophen/ Hydrocodone Bitart 1 tab Q4HP PRN PO 06/24/24 03:15 Ondansetron HCl 4 mg Q4HP PRN IV 06/24/24 03:15 Docusate Sodium 100 mg BIDPRN PRN PO 06/24/24 03:15 Acetaminophen 650 mg Q6HP PRN PO 06/24/24 03:15 Nitroglycerin 0.4 mg Q5MINP PRN SL 06/24/24 03:30 Morphine Sulfate 2 mg Q30M PRN IV 06/24/24 03:30 Laboratory Results Laboratory Tests 06/25/24 05:05 Chemistry Test 06/25/24 05:05 Calcium Level 8.6 mg/dL (8.7-10.4) L Urinalysis Test 06/24/24 10:18 Urine Color Yellow (Yellow) Urine Clarity Hazy (Clear) H Urine pH 8.0 (5.0-9.0) Urine Specific [place] 1.019 (1.001-1.035) Urine Protein Trace (Negative) H Urine Ketones 1+ (Negative) H Urine Blood Negative /uL (Negative) Urine Nitrite Negative (Negative) Urine Bilirubin Negative (Negative) Urine Urobilinogen Normal mg/dL (Negative) Urine Leukocyte Esterase Negative /uL (Negative) Urine RBC 1 /hpf (0 - 4) Urine Microscopic WBC 2 /HPF (0-5) Urine Squamous Epithelial Cells Few /hpf (<5) Urine Bacteria Few /hpf (None Seen) H Urine Mucus Few (None Seen) Urine Glucose 1+ mg/dL (Normal) H Labs and/or images reviewed: Labs reviewed by me Assessment/Plan Assessment/Plan Seizure disorder Hypokalemia Facial laceration Laceration without foreign body of other part of head, initial encounter Continuing current management. Continuing with Keppra IV. Continuing with Ativan PRN for active seizing Waiting for 2D echo. Replace electrolytes as needed. Appreciate tele neurologist recommendation We will order EEG. Continuing with pain medication. Discussed with patient and mother at bedside regarding to plan of care This medical document was created using an electronic medical record system with M[employer]rency direct computerized dictation system. Although this document has been carefully reviewed, there may still be some phonetic and typographical errors. These areas are purely typographical due to imperfections of the software programs, and do not reflect any compromise in the patient's medical care. Plan discussed with: Patient, Other (mother) My Orders Orders - RONNA GUALLPA MD Procedure Category Date Status Time Eeg Awake/Sleep/Act EEG 06/25/24 Transmitted 13:52 Date of Service: June 25, 2024 Billing Provider: RONNA GUALLPA MD Common Visit Codes: [id number] INP/OBS CARE(HIGH) RONNA GUALLPA MD June 25, 2024 22:45
[2024-06-26 01:00] VITALS: BP 102/44; PULSE 69; RESP 16; TEMP 97.9; O2SAT 99
[2024-06-26] MEDS: SODIUM CHLORIDE 0.9% 500 ML IV ONE (02:00)
[2024-06-26 03:48] VITALS: BP 100/56
[2024-06-26 05:00] VITALS: BP 101/59; PULSE 74; RESP 17; TEMP 98.3; O2SAT 99
[2024-06-26 08:00] VITALS: PULSE 60; PULSE 63; RESP 15; O2SAT 99
[2024-06-26 09:00] VITALS: BP 99/56; PULSE 63; RESP 15; TEMP 98.1; O2SAT 99
[2024-06-26] MEDS ORDERED: LACO200T PO ×2 (12:50→12:51)
[2024-06-26] MEDS ORDERED: TOPI200T37 PO (12:51)
--- NOTE | 2024-06-26 12:52 | DVHDS2 ---
Discharge Summary Date of Admission June 24, 2024 at 03:28 Date of Discharge: June 26, 2024 Labs/Diagnostic Data: Laboratory Results Test 06/25/24 05:05 06/24/24 10:18 White Blood Count 6.7 10^3/uL (4.4-10.8) Red Blood Count 3.81 10^6/uL (4.0-5.20) Hemoglobin 11.0 g/dL (12.2-16.2) Hematocrit 33.5 % (36.0-46.0) Mean Corpuscular Volume 88.0 fL (80.0-100.0) Mean Corpuscular Hemoglobin 29.0 pg (28.0-32.0) Mean Corpuscular Hemoglobin Concent 32.9 g/dL (32.0-36.0) Red Cell Distribution Width 15.6 % (11.8-14.3) Platelet Count 290 10^3/uL (140-450) Mean Platelet Volume 7.9 fL (6.9-10.8) Neutrophils (%) (Auto) 41.0 % (37.0-80.0) Lymphocytes (%) (Auto) 46.3 % (10.0-50.0) Monocytes (%) (Auto) 9.8 % (0.0-12.0) Eosinophils (%) (Auto) 2.3 % (0.0-7.0) Basophils (%) (Auto) 0.6 % (0.0-2.0) Neutrophils # (Auto) 2.7 10 ^3/uL (1.6-8.6) Lymphocytes # (Auto) 3.1 10 ^3/uL (0.4-5.4) Monocytes # (Auto) 0.7 10 ^3/uL (0-1.3) Eosinophils # (Auto) 0.2 10 ^3/uL (0-0.8) Basophils # (Auto) 0 10 ^3/uL (0-0.2) Nucleated Red Blood Cells 0.1 % Sodium Level 143 mmol/L (136-145) Potassium Level 3.9 mmol/L (3.5-5.1) Chloride Level 111 mmol/L (98-107) Carbon Dioxide Level 24 mmol/L (20-31) Anion Gap 8 (5-15) Blood Urea Nitrogen < 5 mg/dL (9-23) Creatinine 0.59 mg/dL (0.550-1.02) Glomerular Filtration Rate Calc 129 mL/min (>90) BUN/Creatinine Ratio 8.5 (10.0-20.0) Serum Glucose 86 mg/dL (74-106) Calcium Level 8.6 mg/dL (8.7-10.4) Urine Color Yellow (Yellow) Urine Clarity Hazy (Clear) Urine pH 8.0 (5.0-9.0) Urine Specific [place] 1.019 (1.001-1.035) Urine Protein Trace (Negative) Urine Ketones 1+ (Negative) Urine Blood Negative /uL (Negative) Urine Nitrite Negative (Negative) Urine Bilirubin Negative (Negative) Urine Urobilinogen Normal mg/dL (Negative) Urine Leukocyte Esterase Negative /uL (Negative) Urine RBC 1 /hpf (0 - 4) Urine Microscopic WBC 2 /HPF (0-5) Urine Squamous Epithelial Cells Few /hpf (<5) Urine Bacteria Few /hpf (None Seen) Urine Mucus Few (None Seen) Urine Glucose 1+ mg/dL (Normal) Other Laboratory Tests 06/25/24 05:05 Brief Hx & Hospital Course: Final diagnoses: Seizure disorder Hypokalemia Facial trauma history of migraine 24-year-old female comes with a seizure breakthrough episode that has been happening frequently usually at night after she stopped taking her medication for about 2 weeks She says she has no reason why she stopped it, she knows that she needs to take it Mother is at the bedside They say that they have enough Topamax at home but she has not been taking it Evaluation here showed hypokalemia which was corrected CT scan of the head was negative She had 3 stitches done to the nasal area She has an ecchymosis on the left eye She is feeling better now She has a history of migraine headache She was seen by Neurology here and was advised to increase Topamax to 200 mg twice a day and also add Vimpat 200 mg twice a day Condition at Discharge: Stable Final Diagnosis/Problems List Seizure disorder Hypokalemia Facial trauma Discharge Disposition: Home SNF Discharge Will this Physician continue t: No Discharge Instruct/Medications Diet: Regular Activity: No Restrictions, As Tolerated Follow Up/Referral: PCP as soon as possible Medications: Resume Topamax home dose Discharge Statement: "Patient was advised to return to the ER or call 911 if any headaches, dizziness, shortness of breath, chest pain, abdominal pain, bleeding, fevers, or worsening of medical condition. Patient was counseled about treatment plan, medications, possible side effects, patientverbalized understanding. All questions were answered to the best of my ability. This discharge took greater then 30 minutes in planning, reviewing documentation, counseling the patient, and discussing with other team members." ASSESSMENT ASSESSMENT Assessment Seizure disorder Hypokalemia Facial trauma Date of Service: June 26, 2024 Billing Provider: RAMIN SHAW MD Common Visit Codes: 48861-AQK/OBS DISCH DAY >30min RAMIN SHAW MD June 26, 2024 12:52
[2024-06-26 13:00] VITALS: BP 113/67; PULSE 81; RESP 15; TEMP 98.6; O2SAT 98
== END 2024-06-26 15:05 | disposition home or self-care (01) | DRG 53 ==
LOC: EDBD 00:22 → ER 00:22 → OVERFLOW 03:28 → TELE-EAST 14:29
PROVIDERS: ADMIT Internal Medicine Geriatric Medicine; ATTEND Internal Medicine Geriatric Medicine
PROC: 0HQ1XZZ Repair Face Skin, External Approach (ICD-10-PCS; principal; 2024-06-24)
DX: G40.409 Other generalized epilepsy and epileptic syndromes, not intractable, without status epilepticus (principal); E87.6 Hypokalemia; S01.21XA Laceration without foreign body of nose, initial encounter; G43.909 Migraine, unspecified, not intractable, without status migrainosus; W18.39XA Other fall on same level, initial encounter; Y93.89 Activity, other specified; Y92.89 Other specified places as the place of occurrence of the external cause; Y99.8 Other external cause status; Z79.899 Other long term (current) drug therapy; Z91.128 Patient's intentional underdosing of medication regimen for other reason; Z23 Encounter for immunization
CPT/HCPCS: 12011; 36415; 70450; 80048; 81001; 85025; 90715; 96365; 96375; 99291; G0378; J2405; J3480

== ENCOUNTER 2024-08-31 01:22 | Inpatient (IN) | payer MEDICAID ==
[~2024-08-31] VITALS: Ht 152.4 cm; Wt 46.0 kg
[~2024-08-31 01:22] MED LIST changes: -AMOX875T4 PO; -CEFU500T43 PO; -CIPR1SUS8 OT; -COR10OTS OT; +LACO200T PO; -METH-1181 PO; -NAPR-746 PO; +TOPI200T37 PO
--- NOTE | 2024-08-31 01:46 | ED.PDOC ---
HPI (NEURO) HPI Comments 24 year old female presents to the ED via EMS with a chief complaint of seizures onset today (08/31/24). Per EMS, patient was at home, began experiencing seizure, tonic-clonic, lasted about 1 minute, witnessed by mother. Patient was hypotensive, given 300 ccs fluids in route to ED. Upon ED arrival patient is experiencing nausea/vomiting. Last seizure was about 1 week ago. Patient was seen in this ED on 06/24/24 for similar symptoms. PMHx seizures. Patient is a poor historian. No other symptoms or modifying factors present at this time. Chief Complaint: Seizure Time Seen by MD: 01:40 Primary Care Provider: UNKNOWN NAME Reviewed Notes: Medications, Allergies Information Source: Relative (Mother), Emergency Med Personnel Mode of Arrival: EMS Severity: Moderate Headache Severity: Moderate Timing: Hours Duration: Since onset Prehospital treatment: IVF Seizure Quality: Tonic-clonic Seizure Location: Generalized Onset: At rest Circumstances: Spontaneous Modifying factors: Nothing Vital Signs Vital Signs Date Time Temp Pulse Resp B/P (MAP) Pulse Ox O2 Delivery O2 Flow Rate FiO2 08/31/24 06:00 58 14 96/50 (65) 99 08/31/24 01:50 96.4 96.4 08/31/24 01:30 Room Air* 0 21 Physical Exam General: Awake, alert and oriented. No acute distress. Skin: Skin in warm, dry and intact. Appropriate color for ethnicity. HEENT: The head is normocephalic and atraumatic. Conjunctivae are clear without exudates or hemorrhage. Sclera is non-icteric. EOM are intact. No signs of nystagmus. Eyelids are normal in appearance without swelling or lesions. Oral mucosa is pink and moist Neck: The neck is supple with normal range of motion. No JVD. Cardiac: Heart rate and rhythm are normal. No murmurs, gallops, or rubs are auscultated. Respiratory: No signs of respiratory distress. Lung sounds are clear in all lob es bilaterally without rales, rhonchi, or wheezes. Abdominal: Abdomen is soft, non-tender without distention, guarding or rigidity. Bowel sounds are present and normoactive in all four quadrants. Extremities: Upper and lower extremities are atraumatic in appearance without deformity or edema. Neurological: The patient is sleeping, easily arousable then alert and oriented to person, place, and time with slow speech There is no facial asymmetry. Abnormal gait. Abnormal [id number] test Psychiatric: Appropriate mood and affect. Good judgement and insight. Review of Systems: Unable to complete due to altered mental status Past Medical History PAST MEDICAL HISTORY: Seizures Surgical History: Denies all surgeries [employer] History: No Pertinent [employer] History Family History Family History: Reviewed,noncontributory to illness Social History Smoker: Non-Smoker Alcohol: Denies ETOH Use Drugs: Denies Drug Use Lives In: Home Was a procedure done? Was a procedure done?: No Differential Diagnosis (SZ) Seizure: Hyperventilation, Psychogenic Seizure, Alcohol Withdrawl, Anticonvulsant Withdrawl, Closed Head Injury, CVA/TIA, Drug Ingestion, Hypocalcemia, Hypoglycemia, Hyponatremia, Hypoxemia, Idiopathic, Mass Lesion, Meningitis, Syncope, Encephalopathy, Epilepsy-Break Through, Epilepsy-Status, Other X-Ray, Labs, Meds, VS Vital Signs Date Time Temp Pulse Resp B/P (MAP) Pulse Ox O2 Delivery O2 Flow Rate FiO2 08/31/24 06:00 58 14 96/50 (65) 99 08/31/24 04:00 67 12 94/55 (68) 100 08/31/24 02:49 65 12 93/34 (53) 100 08/31/24 01:50 96.4 50 18 101/63 (76) 99 96.4 08/31/24 01:30 97.0 65 11 101/63 (76) 100 97.0 08/31/24 01:30 Room Air* 0 21 Lab Test 08/31/24 01:50 Range/Units White Blood Count 10.5 4.4-10.8 10^3/uL Red Blood Count 4.30 4.0-5.20 10^6/uL Hemoglobin 12.5 12.2-16.2 g/dL Hematocrit 37.3 36.0-46.0 % Mean Corpuscular Volume 86.7 80.0-100.0 fL Mean Corpuscular Hemoglobin 29.0 28.0-32.0 pg Mean Corpuscular Hemoglobin Concent 33.5 32.0-36.0 g/dL Red Cell Distribution Width 15.7 H 11.8-14.3 % Platelet Count 330 140-450 10^3/uL Mean Platelet Volume 7.9 6.9-10.8 fL Neutrophils (%) (Auto) 49.1 37.0-80.0 % Lymphocytes (%) (Auto) 43.6 10.0-50.0 % Monocytes (%) (Auto) 4.5 0.0-12.0 % Eosinophils (%) (Auto) 1.9 0.0-7.0 % Basophils (%) (Auto) 0.9 0.0-2.0 % Neutrophils # (Auto) 5.2 1.6-8.6 10 ^3/uL Lymphocytes # (Auto) 4.6 0.4-5.4 10 ^3/uL Monocytes # (Auto) 0.5 0-1.3 10 ^3/uL Eosinophils # (Auto) 0.2 0-0.8 10 ^3/uL Basophils # (Auto) 0.1 0-0.2 10 ^3/uL Nucleated Red Blood Cells 0.0 % Sodium Level 142 136-145 mmol/L Potassium Level 3.0 L 3.5-5.1 mmol/L Chloride Level 108 H 98-107 mmol/L Carbon Dioxide Level 22 20-31 mmol/L Anion Gap 12 5-15 Blood Urea Nitrogen 10 9-23 mg/dL Creatinine 0.76 0.550-1.02 mg/dL Glomerular Filtration Rate Calc 112 >90 mL/min BUN/Creatinine Ratio 13.2 10.0-20.0 Serum Glucose 139 H 74-106 mg/dL Calcium Level 8.4 L 8.7-10.4 mg/dL Total Bilirubin 0.2 0.2-1.0 mg/dL Aspartate Amino Transferase (AST) 32 13-40 U/L Alanine Aminotransferase (ALT) 18 7-40 U/L Alkaline Phosphatase 54 46-116 U/L Total Protein 6.6 5.7-8.2 g/dL Albumin 4.2 3.2-4.8 g/dL Plasma/Serum Blood Alcohol < 3.0 <10 mg/dL Time of 1ST Reevaluation: 02:10 Reevaluation 1ST: Unchanged Patient Education/Counseling: Need For Follow Up Family Education/Counseling: Need For Follow Up Departure 1 Departure Time of Disposition: 01:19 Impression: Primary Impression: Post-ictal state Additional Impression: Breakthrough seizure Disposition: ADMITTED INPATIENT Condition: Stable Comments 24-year-old female with continued ataxia, altered mental status, difficulty ambulating after seizure. Patient admitted to hospitalist service for further treatment, evaluation and monitoring. Extensive evaluation was performed in attempt to identify or rule out: (See differential diagnosis section) The following tests were ordered, and results were reviewed by me and discussed with patient and her mother: (See diagnostic results section) The following test were independently interpreted by me: N/A I reviewed and agreed with the following test results read by other providers: CT head Additional information was gathered from interviewing the following independent historians: EMS personnel, patient's mother at bedside Discussion of management or test interpretation with external physician/other qualified health child care leader: N/A Decision regarding hospitalization or escalation of hospital level of care: Risk and benefits of admission for further treatment of patient's condition was considered. Due to patient's current clinical condition, high risk of decline and poor outcome if discharged and need for further inpatient management and monitoring, patient will be admitted to the hospital. Drug therapy requiring intensive monitoring for toxicity: N/A Parenteral controlled substances: N/A Decision regarding elective major surgery with identified patient or procedure risk factors: N/A Decision regarding emergency major surgery: N/A Decision not to resuscitate or to de-escalate care because of poor prognosis: N/A Diagnosis or treatment significantly limited by social determinants of health: N/A Critical Care Note Critical Care Time?: No Stability Stability form required: No I personally scribed for MARSHA HILL MD ([email or web address]) on 08/31/24 at 01:46. Electronically submitted by Zee Roman ([email or web address]). MARSHA HILL MD Aug 31, 2024 01:46
[2024-08-31] MEDS: ONDANSETRON HCL 4 MG/2 ML VIAL IV ONE (01:51)
[2024-08-31] MEDS: SODIUM CHLORIDE 0.9% 1,000 ML IV ONE ×2 (01:51→03:05)
[2024-08-31 02:02] LABS: Hematocrit 37.3 % (36.0-46.0); Hemoglobin 12.5 g/dL (12.2-16.2); Mean Corpuscular Hemoglobin 29.0 pg (28.0-32.0); Mean Corpuscular Volume 86.7 fL (80.0-100.0); Nucleated Red Blood Cells % 0.0 %
[2024-08-31 02:21] LABS: Alanine Aminotransferase 18 U/L (7-40); Albumin 4.2 g/dL (3.2-4.8); Alkaline Phosphatase 54 U/L (46-116); Anion Gap 12 (5-15); BUN/Creatinine Ratio 13.2 (10.0-20.0); Blood Urea Nitrogen 10 mg/dL (9-23); Carbon Dioxide 22 mmol/L (20-31); Sodium 142 mmol/L (136-145); Total Protein 6.6 g/dL (5.7-8.2)
[2024-08-31 03:01] LABS: Bilirubin, Total 0.2 mg/dL (0.2-1.0); Calcium 8.4 mg/dL (8.7-10.4); Chloride 108 mmol/L (98-107); Glucose 139 mg/dL (74-106); Potassium 3.0 mmol/L (3.5-5.1)
--- NOTE | 2024-08-31 03:53 | DVH ---
EXAM: CT HEAD WITHOUT CONTRAST INDICATION: Altered mental status status post seizure TECHNIQUE: CT of the head without intravenous contrast. Radiation Dose : 1. Head: CT Dose: CTDI volume is 59.89 mGy. Dose-length product is 1060.35 mGy*cm The dose indicators for CT are the volume Computed Tomography (CT) Dose Index (CTDIvol) and the Dose Length Product (DLP), and are measured in units of mGy and mGy-cm, respectively. These indicators are not patient dose, but values generated from the CT scanner acquisition factors. The report includes radiation exposure data for exposures received during this examination. COMPARISON: CT HEAD WITHOUT CONTRAST on DOS: 06/24/24, CT HEAD WITHOUT CONTRAST on DOS: 07/23/22 FINDINGS: There is no evidence of acute intracranial hemorrhage, extra-axial collection, mass effect, midline s hift, herniation or hydrocephalus. The ventricles, sulci and cisterns are age appropriate. The lorenz-white differentiation is intact. The visualized paranasal sinuses and mastoid air cells are clear. The surrounding soft tissues and osseous structures are unremarkable. IMPRESSION: 1. No acute intracranial abnormality. Radiation optimization: All CT scans at this facility use at least one of these dose optimization jani hniques: automated exposure control mA and/or kV adjustment per patient size (includes targeted exam s where dose is matched to clinical indication) or iterative reconstruction.
[2024-08-31] MEDS: POTASSIUM CHL 20 Meq TABLET PO ONE (04:10)
[2024-08-31] MEDS ORDERED: ACETAMINOPHEN 325 MG TAB PO PRN (07:00)
[2024-08-31] MEDS ORDERED: ONDANSETRON HCL 4 MG/2 ML VIAL IV PRN (07:00)
--- NOTE | 2024-08-31 07:35 | DVHHP2 ---
History of Present Illness Reason for Visit: Seizure History of Present Illness Regla Beck is a 24-year-old female with past medical history of seizure and tonsillectomy who presents to the ED with seizure that occurred yesterday. Patient reports that she was walking going to bed when she fell in the hallway and hit the right side of her head on the floor. She states that her mom and brother found her lying on the floor when she came to. She is currently denying of any pain at this time. She reports that her seizures occur once a week for the last 1 year and not triggered by anything. She also reports that she sees a neurologist Dr. Jennie Burnett since last year. She also endorses that she has been compliant with her medications. She is denying any use of drugs, alcohol, and tobacco use. Patient denies chest pain, shortness of breath, fever, chills, lightheadedness, weakness, dizziness, recent sick contacts, recent travels, recent ingestion of spoiled food, abdominal pain, nausea, vomiting, diarrhea, or urinary symptoms. Mom Radha at the bedside. PATHOLOGY TECHNOLOGIST: Seizure Past Surgical History: Tonsillectomy Family History: Hypertension, Other (Mom with high blood pressure) Smoke: No ALCOHOL: none Drugs: None Lives: with Family Domestic Violence: Neg Review of Systems Neurological: Seizures Allergies: Coded Allergies: NO KNOWN ALLERGIES (Unverified , 11/23/12) Exam Vital Signs Vital Signs Date Time Temp Pulse Resp B/P (MAP) Pulse Ox O2 Delivery O2 Flow Rate FiO2 08/31/24 06:00 58 14 96/50 (65) 99 08/31/24 01:50 96.4 96.4 General Appearance: Alert, Oriented X3, Cooperative, No acute distress HEENT: Atraumatic, PERRLA, EOMI, Mucous membr. moist/pink Respiratory: Clear to auscultation, Normal air movement Cardiovascular: Normal S1, Normal S2, No murmurs Abdominal: Normal bowel sounds, Soft, No tenderness, No hepatospenomegaly, No masses Extremities: No clubbing, No cyanosis, No edema, Normal pulses, No te nderness/swelling Skin: No significant lesion Neuro: Normal speech, Strength at 5/5 X4 ext, Normal tone, Sensation intact Psych/Mental Status: Mental status NL, Mood NL Labs/Xrays Labs Test 08/31/24 01:50 Range/Units White Blood Count 10.5 4.4-10.8 10^3/uL Red Blood Count 4.30 4.0-5.20 10^6/uL Hemoglobin 12.5 12.2-16.2 g/dL Hematocrit 37.3 36.0-46.0 % Mean Corpuscular Volume 86.7 80.0-100.0 fL Mean Corpuscular Hemoglobin 29.0 28.0-32.0 pg Mean Corpuscular Hemoglobin Concent 33.5 32.0-36.0 g/dL Red Cell Distribution Width 15.7 H 11.8-14.3 % Platelet Count 330 140-450 10^3/uL Mean Platelet Volume 7.9 6.9-10.8 fL Neutrophils (%) (Auto) 49.1 37.0-80.0 % Lymphocytes (%) (Auto) 43.6 10.0-50.0 % Monocytes (%) (Auto) 4.5 0.0-12.0 % Eosinophils (%) (Auto) 1.9 0.0-7.0 % Basophils (%) (Auto) 0.9 0.0-2.0 % Neutrophils # (Auto) 5.2 1.6-8.6 10 ^3/uL Lymphocytes # (Auto) 4.6 0.4-5.4 10 ^3/uL Monocytes # (Auto) 0.5 0-1.3 10 ^3/uL Eosinophils # (Auto) 0.2 0-0.8 10 ^3/uL Basophils # (Auto) 0.1 0-0.2 10 ^3/uL Nucleated Red Blood Cells 0.0 % Sodium Level 142 136-145 mmol/L Potassium Level 3.0 L 3.5-5.1 mmol/L Chloride Level 108 H 98-107 mmol/L Carbon Dioxide Level 22 20-31 mmol/L Anion Gap 12 5-15 Blood Urea Nitrogen 10 9-23 mg/dL Creatinine 0.76 0.550-1.02 mg/dL Glomerular Filtration Rate Calc 112 >90 mL/min BUN/Creatinine Ratio 13.2 10.0-20.0 Serum Glucose 139 H 74-106 mg/dL Calcium Level 8.4 L 8.7-10.4 mg/dL Total Bilirubin 0.2 0.2-1.0 mg/dL Aspartate Amino Transferase (AST) 32 13-40 U/L Alanine Aminotransferase (ALT) 18 7-40 U/L Alkaline Phosphatase 54 46-116 U/L Total Protein 6.6 5.7-8.2 g/dL Albumin 4.2 3.2-4.8 g/dL Plasma/Serum Blood Alcohol < 3.0 <10 mg/dL EXAM: CT HEAD WITHOUT CONTRAST INDICATION: Altered mental status status post seizure TECHNIQUE: CT of the head without intravenous contrast. Radiation Dose : 1. Head: CT Dose: CTDI volume is 59.89 mGy. Dose-length product is 1060.35 mGy*cm The dose indicators for CT are the volume Computed Tomography (CT) Dose Index (CTDIvol) and the Dose Length Product (DLP), and are measured in units of mGy and mGy-cm, respectively. These indicators are not patient dose, but values generated from the CT scanner acquisition factors. The report includes radiation exposure data for exposures received during this examination. COMPARISON: CT HEAD WITHOUT CONTRAST on DOS: 06/24/24, CT HEAD WITHOUT CONTRAST on DOS: 07/23/22 FINDINGS: There is no evidence of acute intracranial hemorrhage, extra-axial collection, mass effect, midline shift, herniation or hydrocephalus. The ventricles, sulci and cisterns are age appropriate. The lorenz-white differentiation is intact. The visualized paranasal sinuses and mastoid air cells are clear. The surrounding soft tissues and osseous structures are unremarkable. IMPRESSION: 1. No acute intracranial abnormality. SEPSIS Sepsis Screen Date sepsis recognized/suspect: Aug 31, 2024 Time Sepsis recognized/suspect: 129 Recent Procedure: No On Antibiotic Therapy: No Respiratory Rate >20: No Heart Rate >90: No Temp<36 C (96.8 F) or >38.3 C: No SBP <90 or MAP <65 mmHG: No New Acute Mental Status Change: No Is the patient on CPAP, BIPAP,: No Physician Orders Drug Screen (08/31/24 01:37) Urinalysis (08/31/24 01:37) Test, Urine (08/31/24 01:37) Notify Md If Abnormal Vs (08/31/24 01:37) Seizure Precautions (08/31/24 ) Titrate Oxygen (08/31/24 01:37) Oxygen (08/31/24 ) Continous Pulse Oximetry (08/31/24 01:37) Saline Lock (08/31/24 01:37) Die Set Up Worker (08/31/24 ) Head Without Contrast (08/31/24 02:35) * Neurology Consult (08/31/24 04:23) Admit (08/31/24 06:57) Allergies (08/31/24 06:57) Code Status (08/31/24 06:57) Ondansetron Hcl (Zofran) (08/31/24 07:00) Complete Blood Count (09/01/24 04:00) Comprehensive Metabolic Panel (09/01/24 04:00) Cardiac Diet-2gna,Lofat,Lochol (08/31/24 Breakfast) Acetaminophen Tablet (Tylenol Tablet) (08/31/24 07:00) Sequential Compression Device (08/31/24 ) (Nf) Lacosamide (Vimpat) (08/31/24 10:00) (Nf) Topiramate (Topamax) (08/31/24 10:00) Vital Signs Date Time Temp Pulse Resp B/P (MAP) Pulse Ox O2 Delivery O2 Flow Rate FiO2 08/31/24 06:00 58 14 96/50 (65) 99 08/31/24 04:00 67 12 94/55 (68) 100 08/31/24 02:49 65 12 93/34 (53) 100 08/31/24 01:50 96.4 50 18 101/63 (76) 99 96.4 08/31/24 01:30 97.0 65 11 101/63 (76) 100 97.0 Laboratory Tests Test 08/31/24 01:50 White Blood Count 10.5 10^3/uL (4.4-10.8) Medications Medications Dose Ordered Sig/Shaan Route Start Time Stop Time Status Last Admin Dose Admin Ondansetron HCl 4 mg ONCE ONCE IV 08/31/24 01:45 08/31/24 01:46 DC 08/31/24 01:51 4 MG Potassium Chloride 40 meq ONCE ONCE PO 08/31/24 04:00 08/31/24 04:03 DC 08/31/24 04:10 40 MEQ Sodium Chloride 1,000 ml @ 1,000 mls/hr Q1H ONCE IV 08/31/24 01:45 08/31/24 02:44 DC 08/31/24 01:51 1,000 MLS/HR Sodium Chloride 1,000 ml @ 1,000 mls/hr Q1H ONCE IV 08/31/24 03:00 08/31/24 03:59 DC 08/31/24 03:05 1,000 MLS/HR Assessment/Plan Assessment/Plan Assessment Seizure disorder Hypokalemia History of tonsillectomy Plan Admit to med surge Seizure precautions Replete lytes NS 2 L given ED Antiemetics CT head noted Blood alcohol level HCG noted UA UDS Chest x-ray ordered Diet Home medications reconciled DVT prophylaxis-not indicated patient ambulating PUD prophylaxis-not indicated no history of GERD or GI bleed Plan of care with patient, patient's mom, and [place] [id number] Preventive counseling healthy eating habits, physical activity, and regular checkups Plan discussed with: Patient, Other (mom) My Orders Orders - ELLIE ARCINIEGA Procedure Category Date Status Time Admit ADMIT 08/31/24 Verified 06:57 Allergies CHUCKY 08/31/24 Verified 06:57 Code Status CODE 08/31/24 Verified 06:57 Ondansetron Hcl PHA 08/31/24 Verified (Zofran) 07:00 Complete Blood Count LAB 09/01/24 Verified 04:00 Comprehensive LAB 09/01/24 Verified Metabolic Panel 04:00 Cardiac DIET 08/31/24 Verified Diet-2gna,Lofat,Lochol Breakfast Acetaminophen Tablet PHA 08/31/24 Verified (Tylenol Tablet) 07:00 Sequential CHUCKY 08/31/24 Verified Compression Device (Nf) Lacosamide PHA 08/31/24 Verified (Vimpat) 10:00 (Nf) Topiramate PHA 08/31/24 Verified (Topamax) 10:00 Date of Service: Aug 31, 2024 Billing Provider: ELLIE ARCINIEGA Common Visit Codes: [id number] INP/OBS CARE (HIGH) Secondary Visit Codes: [id number] COUNSELING IND ELLIE ARCINIEGA Aug 31, 2024 07:35
[2024-08-31 08:53] VITALS: PULSE 80; RESP 18; O2SAT 95
--- NOTE | 2024-08-31 09:31 | DVH ---
EXAM: XY CHEST XRAY 1 VIEW Indication: pain; r/o pna Technique: Single frontal view of the chest was obtained Comparison: None FINDINGS: Lines and Tubes: None Lungs: No focal consolidation. Pleura: No effusion. No pneumothorax. Cardiomediastinal contours: Unremarkable Bones: No acute osseous abnormality. IMPRESSION: No acute cardiopulmonary disease.
[2024-08-31] MEDS ORDERED: TOPIRAMATE 200 MG PO SCH (10:00)
[2024-08-31] MEDS ORDERED: PATIENTS OWN MEDICATION (Lacosamide (Vimpat) 200 MG) PO SCH (10:00)
[2024-08-31] MEDS: LACOSAMIDE 50 MG TAB PO SCH (10:02)
[2024-08-31] MEDS: TOPIRAMATE 100 MG TAB PO SCH (10:02)
--- NOTE | 2024-08-31 16:04 | DVHPN2 ---
Subjective Comfortable in bed. Alert awake oriented x3. No further seizures while she is in the hospital. Changes from previous H/P or p: No Changes Objective Vitals Vital Signs Date Time Temp Pulse Resp B/P (MAP) Pulse Ox O2 Delivery O2 Flow Rate FiO2 08/31/24 14:00 68 17 99/58 (72) 98 08/31/24 08:53 Room Air* 0 21 08/31/24 08:00 98.4 98.4 Intake/Output Intake and Output 08/31/24 07:00 Intake Total 2000 ml Balance 2000 ml Intake IV Total 2000 ml Exam Alert awake oriented x3. HEENT neck supple no JVD pupils equal round react to light. Heart regular rate and rhythm S1-S2. Lungs fair air movement chest tube will expansion no rales wheezes. Abdomen is soft nontender nondistended positive bowel sounds. Extremities no edema positive distal pedal pulses. Neurologically no focal neurological deficits noted. Medications Current Medications Medications Dose Ordered Sig/Shaan Route Start Time Stop Time Status Last Admin Dose Admin Ondansetron HCl 4 mg Q4HP PRN IV 08/31/24 07:00 Acetaminophen 650 mg Q6HP PRN PO 08/31/24 07:00 Patient Own Medication 200 mg BID PO 08/31/24 10:00 UNV Patient Own Medication 200 mg BID PO 08/31/24 10:00 UNV Lacosamide 200 mg BID PO 08/31/24 10:00 08/31/24 10:02 200 MG Topiramate 200 mg BID PO 08/31/24 10:00 08/31/24 10:02 200 MG Laboratory Results Laboratory Tests 08/31/24 01:50 Chemistry Test 08/31/24 01:50 Albumin 4.2 g/dL (3.2-4.8) Calcium Level 8.4 mg/dL (8.7-10.4) L Total Protein 6.6 g/dL (5.7-8.2) LFT Test 08/31/24 01:50 Alanine Aminotransferase (ALT) 18 U/L (7-40) Alkaline Phosphatase 54 U/L (46-116) Aspartate Amino Transferase (AST) 32 U/L (13-40) Total Bilirubin 0.2 mg/dL (0.2-1.0) Assessment/Plan Assessment/Plan Apparent breakthrough seizures once a week per patient. Lasts about a minute. She does not appear to be postictal with a per her. Patient was recently hospitalized and evaluated by neurologist here. Her seizure medications have been adjusted. Patient is advised to continue these medicines. We will monitor her overnight. Otherwise further clinical management per clinical course. Discussed with the patient regarding care plan. Plan discussed with: Patient, Other My Orders Orders - MU HALEY MD Procedure Category Date Status Time Brain Head Wo Contrast MRI 08/31/24 Taken 14:01 Mra Angio Head Brain MRI 08/31/24 Logged 14:01 Problem List: (1) Seizure disorder Date of Service: Aug 31, 2024 Billing Provider: MU HALEY MD Common Visit Codes: [id number] INP/OBS CARE(MOD) MU HALEY MD Aug 31, 2024 16:04
--- NOTE | 2024-08-31 16:18 | DVH ---
PROCEDURE: MRI BRAIN HEAD WO CONTRAST INDICATION: falls/ seizures EXAM DATE: 08/31/2024 03:29 PM COMPARISON: None TECHNIQUE: MRI of the brain without intravenous contrast. Seizure protocol. FINDINGS: Diffusion weighted images of the brain demonstrate no evidence of acute infarction. There is no evidence of acute intracranial hemorrhage, extra-axial collection, mass effect, midline s hift, herniation or hydrocephalus. The ventricles, sulci and cisterns appear age appropriate. The signal intensities of the brain parenchyma are within normal limits. There are no signal abnormalities on the susceptibility weighted sequences. The major vascular flow voids are present. The visualized paranasal sinuses and mastoid air cells are clear. The surrounding soft tissues and o sseous structures are unremarkable. IMPRESSION: 1. No evidence of acute infarction, intracranial hemorrhage, mass effect or hydrocephalus. No evidenc e of mesial temporal sclerosis. HS:Y
--- NOTE | 2024-08-31 16:24 | DVH ---
PROCEDURE: MRI MRA ANGIO HEAD BRAIN INDICATION: falls/ seizures Exam Date: 08/31/2024 03:45 PM COMPARISON: None TECHNIQUE: MRA head without intravenous contrast. 3D image postprocessing was performed on a dedicated workstation and images were used for interpretat ion and reporting. FINDINGS: MRA head: There is preserved flow within the bilateral distal internal carotid arteries. There is preserved fl ow within the anterior and middle cerebral arteries. There is preserved flow within the vertebral ar teries, basilar artery, cerebellar arteries and posterior cerebral arteries. There is no evidence of hemodynamically significant intracranial stenosis, proximal occlusion or aneurysm. No abnormal veno us signal is seen. IMPRESSION: 1. No evidence of hemodynamically significant intracranial stenosis, proximal occlusion or aneurysm. HS:Y
[2024-08-31 20:12] VITALS: BP 120/78; PULSE 78; RESP 18; TEMP 98.1; O2SAT 97
--- NOTE | 2024-08-31 20:28 | DVHINCON2 ---
Date of service: Aug 31, [address] Granado Reason for Consultation Seizure History of Present Illness Ms. Eric Vance is a 24 years old right-handed female with a history of migraine headache, she came to the [facility] on with a chief complaint of seizure activity. At this time, she is alert and fully oriented, but has company amnesia about her seizure activity prior to this admission. Her parents are in the room and helped the history Before she came, the family found her completely nonresponsive on the floor, and after she was taken to the bed, she had a event where she was nonresponsive, with whole-body stiff up, eyes closed for about 1 minute, without biting or incontinence Coincidentally after had meningitis in the age of 16, he has a seizure disorder in that she has episodic event with shaking all over body with eyes either closed or open , she is nonresponsive during the seizure, and she has complete amnesia about seizure. She used to have seizure 4 times weekly, but with current treatment: Vimpat, 200 mg b.i.d., topiramate, 200 mg b.i.d., once weekly (mother reported 2-3 times weekly), her mother reported significant amount of weight loss with current treatment She sees Dr. Lashonda Burnett, a local neurologist Plasma alcohol, 08/31/2024: <3 CSF, 12/07/16: WBC: 0.55, RBC: 1.66 CBC, 08/31/2024: Unremarkable CMP, 08/31/2024: Unremarkable MRI head, 08/31/2024: No evidence of acute infarction, intracranial hemorrhage, mass effect or hydrocephalus. No evidence of mesial temporal sclerosis MRA head, 08/31/2024: No evidence of hemodynamically significant intracranial stenosis, proximal occlusion or aneurysm. Past Medical History Seizures, Migraine headache Past Surgical History None Family History: Patient reports no known family medical history. Family History Hypertension, headache Social History She has no history of tobacco smoking, drug or alcohol abuse Allergies: Coded Allergies: NO KNOWN ALLERGIES (Unverified , 11/23/12) Home Meds Active Scripts Topiramate (Topamax) 200 Mg Tab, 200 MG PO BID for 30 Days, #60 TAB 5 Refills Prov:RAMIN SHAW MD 06/26/24 Reported Medications Lacosamide (Vimpat) 200 Mg Tab, 200 MG PO BID for 30 Days, #60 TAB 5 Refills 06/26/24 Current Medications Current Medications Medications (Trade) Dose Ordered Sig/Shaan Route PRN Reason Start Time Stop Time Status Last Admin Ondansetron HCl (Zofran) 4 mg Q4HP PRN IV NAUSEA / VOMITING 08/31/24 07:00 Acetaminophen (Tylenol Tablet) 650 mg Q6HP PRN PO PAIN SCALE 1-3 OR TEMP>100.4 08/31/24 07:00 Patient Own Medication 200 mg BID PO 08/31/24 10:00 UNV Patient Own Medication 200 mg BID PO 08/31/24 10:00 UNV Lacosamide (Vimpat) 200 mg BID PO 08/31/24 10:00 08/31/24 10:02 Topiramate (Topamax) 200 mg BID PO 08/31/24 10:00 08/31/24 10:02 Review of Systems As above, the other systems are negative Vital Signs Vital Signs Date Time Temp Pulse Resp B/P (MAP) Pulse Ox O2 Delivery O2 Flow Rate FiO2 08/31/24 20:12 98.1 78 18 120/78 (92) 97 98.1 08/31/24 20:12 Room Air* 0 21 Physical Exam GENERAL EXAM: General: the patient is well developed and nourished. No acute distress. HEENT: Normocephalic, neck is supple, no carotid bruits. No mass. RESPIRATORY: Normal respiratory effort with symmetrical lung expansion. Lungs clear to auscultation. CARDIOVASCULAR: Regular rate and rhythm with no murmurs. S1, S2. ABDOMEN: Soft, nontender, normal bowel sound NEUROLOGICAL: MENTAL STATUS: Awake and alert. Oriented to person, place, time and general circumstances. Able to give personal history. SPEECH, LANGUAGE, HIGHER CORTICAL FUNCTION: no aphasia or dysathria. CRANIAL NERVES: #2: Intact visual malone to confrontation. The optic discs were sharp. #3,4,6: Pupils are equal, round and reactive. EOMs full and conjugate. No nystagmus. #5: Facial sensation intact in all three divisions bilaterally. Mandibular stre ngth intact. #7: Facial muscles symmetrical and strength intact. #8: Hearing grossly normal to voice. #9,10: Uvula and soft palate rise in the midline. Swallow and voice are normal. #11: Trapezius and sternomastoid strength intact bilaterally. #12: Tongue midline. No fasciculations or atrophy. SENSATION: Sensation to touch and pinprick is normal. MOTOR: Normal tone in the upper and lower extremity. Normal muscle bulk. No fasciculations. No abnormal movements or posturing. Muscle strength of the major groups in the upper extremities is 5/5. Muscle strength of the major groups in the lower extremities is 5/5. REFLEXES: Deep tendon reflexes normal and symmetrical. No pathological reflexes. CEREBELLAR/COORDINATION: Finger to nose is normal bilaterally. GAIT/STATION: deferred. Labs/Diagnostic Data Labs Test 08/31/24 01:50 Range/Units White Blood Count 10.5 4.4-10.8 10^3/uL Red Blood Count 4.30 4.0-5.20 10^6/uL Hemoglobin 12.5 12.2-16.2 g/dL Hematocrit 37.3 36.0-46.0 % Mean Corpuscular Volume 86.7 80.0-100.0 fL Mean Corpuscular Hemoglobin 29.0 28.0-32.0 pg Mean Corpuscular Hemoglobin Concent 33.5 32.0-36.0 g/dL Red Cell Distribution Width 15.7 H 11.8-14.3 % Platelet Count 330 140-450 10^3/uL Mean Platelet Volume 7.9 6.9-10.8 fL Neutrophils (%) (Auto) 49.1 37.0-80.0 % Lymphocytes (%) (Auto) 43.6 10.0-50.0 % Monocytes (%) (Auto) 4.5 0.0-12.0 % Eosinophils (%) (Auto) 1.9 0.0-7.0 % Basophils (%) (Auto) 0.9 0.0-2.0 % Neutrophils # (Auto) 5.2 1.6-8.6 10 ^3/uL Lymphocytes # (Auto) 4.6 0.4-5.4 10 ^3/uL Monocytes # (Auto) 0.5 0-1.3 10 ^3/uL Eosinophils # (Auto) 0.2 0-0.8 10 ^3/uL Basophils # (Auto) 0.1 0-0.2 10 ^3/uL Nucleated Red Blood Cells 0.0 % Sodium Level 142 136-145 mmol/L Potassium Level 3.0 L 3.5-5.1 mmol/L Chloride Level 108 H 98-107 mmol/L Carbon Dioxide Level 22 20-31 mmol/L Anion Gap 12 5-15 Blood Urea Nitrogen 10 9-23 mg/dL Creatinine 0.76 0.550-1.02 mg/dL Glomerular Filtration Rate Calc 112 >90 mL/min BUN/Creatinine Ratio 13.2 10.0-20.0 Serum Glucose 139 H 74-106 mg/dL Calcium Level 8.4 L 8.7-10.4 mg/dL Total Bilirubin 0.2 0.2-1.0 mg/dL Aspartate Amino Transferase (AST) 32 13-40 U/L Alanine Aminotransferase (ALT) 18 7-40 U/L Alkaline Phosphatase 54 46-116 U/L Total Protein 6.6 5.7-8.2 g/dL Albumin 4.2 3.2-4.8 g/dL Plasma/Serum Blood Alcohol < 3.0 <10 mg/dL Assessment General realized tonic-clonic seizure with frequent attacks General tonic-clonic seizure with a typical features Migraine headache Weight loss, possibly topiramate related Child bearing age Plan/Recommendation Monitoring Supportive treatment Telemetry Ativan for seizure breakthrough Vimpat 200 mg b.i.d. Topiramate 200 mg b.i.d. She has been advised to discuss with her neurologist Re: Substitute topiramate with other seizure medication Follow up with her doctors on discharge ISABELA Progress: poot This medical document was created using an electronic medical record system with [employer] computerized dictation system. Although this document has been carefully reviewed, there may still be some phonetic and typographical errors. These areas are purely typographical due to imperfections of the software programs, and do not reflect any compromise in the patient's medical care. Plan discussed with: Patient, Other FREDDIE RAMOS MD Aug 31, 2024 20:28
[2024-08-31] MEDS ORDERED: LORazepam 2MG/ML-1ML VIAL IV PRN (20:30)
--- NOTE | 2024-09-01 11:19 | DVHDS2 ---
Discharge Summary Date of Admission Aug 31, 2024 at 06:57 Date of Discharge: Aug 31, 2024 Labs/Diagnostic Data: Laboratory Results Test 08/31/24 01:50 White Blood Count 10.5 10^3/uL (4.4-10.8) Red Blood Count 4.30 10^6/uL (4.0-5.20) Hemoglobin 12.5 g/dL (12.2-16.2) Hematocrit 37.3 % (36.0-46.0) Mean Corpuscular Volume 86.7 fL (80.0-100.0) Mean Corpuscular Hemoglobin 29.0 pg (28.0-32.0) Mean Corpuscular Hemoglobin Concent 33.5 g/dL (32.0-36.0) Red Cell Distribution Width 15.7 % (11.8-14.3) Platelet Count 330 10^3/uL (140-450) Mean Platelet Volume 7.9 fL (6.9-10.8) Neutrophils (%) (Auto) 49.1 % (37.0-80.0) Lymphocytes (%) (Auto) 43.6 % (10.0-50.0) Monocytes (%) (Auto) 4.5 % (0.0-12.0) Eosinophils (%) (Auto) 1.9 % (0.0-7.0) Basophils (%) (Auto) 0.9 % (0.0-2.0) Neutrophils # (Auto) 5.2 10 ^3/uL (1.6-8.6) Lymphocytes # (Auto) 4.6 10 ^3/uL (0.4-5.4) Monocytes # (Auto) 0.5 10 ^3/uL (0-1.3) Eosinophils # (Auto) 0.2 10 ^3/uL (0-0.8) Basophils # (Auto) 0.1 10 ^3/uL (0-0.2) Nucleated Red Blood Cells 0.0 % Sodium Level 142 mmol/L (136-145) Potassium Level 3.0 mmol/L (3.5-5.1) Chloride Level 108 mmol/L (98-107) Carbon Dioxide Level 22 mmol/L (20-31) Anion Gap 12 (5-15) Blood Urea Nitrogen 10 mg/dL (9-23) Creatinine 0.76 mg/dL (0.550-1.02) Glomerular Filtration Rate Calc 112 mL/min (>90) BUN/Creatinine Ratio 13.2 (10.0-20.0) Serum Glucose 139 mg/dL (74-106) Calcium Level 8.4 mg/dL (8.7-10.4) Total Bilirubin 0.2 mg/dL (0.2-1.0) Aspartate Amino Transferase (AST) 32 U/L (13-40) Alanine Aminotransferase (ALT) 18 U/L (7-40) Alkaline Phosphatase 54 U/L (46-116) Total Protein 6.6 g/dL (5.7-8.2) Albumin 4.2 g/dL (3.2-4.8) Plasma/Serum Blood Alcohol < 3.0 mg/dL (<10) Other Laboratory Tests 08/31/24 01:50 Brief Hx & Hospital Course: Regla Beck is a 24-year-old female with past medical history of seizure and tonsillectomy who presents to the ED with seizure that occurred yesterday. Patient reports that she was walking going to bed when she fell in the hallway and hit the right side of her head on the floor. She states that her mom and brother found her lying on the floor when she came to. She is currently denying of any pain at this time. She reports that her seizures occur once a week for the last 1 year and not triggered by anything. She also reports that she sees a neurologist Dr. Jennie Burnett since last year. She also endorses that she has been compliant with her medications. She is denying any use of drugs, alcohol, and tobacco use. Patient denies chest pain, shortness of breath, fever, chills, lightheadedness, weakness, dizziness, recent sick contacts, recent travels, recent ingestion of spoiled food, abdominal pain, nausea, vomiting, diarrhea, or urinary symptoms. She is admitted and I have evaluated the patient. Patient is also seen by on- call neurologist. Patient remained seizure free in the hospital. Patient had MRI of the brain and MRA did not show any acute pathology. Patient apparently feeling better and decided to leave AMA and did not want to stay in the hospital for further monitoring and adjustment of her seizure medications. I was notified by the nurse after patient left AMA. Operations or Procedures PROCEDURE(s): MRAB - MRA ANGIO HEAD BRAIN REASON: falls/?seizures ORDER NUMBER(s): [id number], ACCESSION NUMBER(s): [id number] PROCEDURE: MRI MRA ANGIO HEAD BRAIN INDICATION: falls/ seizures Exam Date: 08/31/2024 03:45 PM COMPARISON: None TECHNIQUE: MRA head without intravenous contrast. 3D image postprocessing was performed on a dedicated workstation and images were used for interpretation and reporting. FINDINGS: MRA head: There is preserved flow within the bilateral distal internal carotid arteries. There is preserved flow within the anterior and middle cerebral arteries. There is preserved flow within the vertebral arteries, basilar artery, cerebellar arteries and posterior cerebral arteries. There is no evidence of hemodynamically significant intracranial stenosis, proximal occlusion or aneurysm. No abnormal venous signal is seen. IMPRESSION: 1. No evidence of hemodynamically significant intracranial stenosis, proximal occlusion or aneurysm. HS:Y ATED BY: AURELIO MANNING MD DICTATED DATE/TIME: 08/31/24 1622 Condition at Discharge: Guarded Final Diagnosis/Problems List breakthru seizures Discharge Disposition: AMA Discharge Instruct/Medications Scheduled Lacosamide (Vimpat), 200 MG PO BID, (Reported) Topiramate (Topamax), 200 MG PO BID Discharge Statement: "Patient was advised to return to the ER or call 911 if any headaches, dizziness, shortness of breath, chest pain, abdominal pain, bleeding, fevers, or worsening of medical condition. Patient was counseled about treatment plan, medications, possible side effects, patientverbalized understanding. All questions were answered to the best of my ability. This discharge took greater then 30 minutes in planning, reviewing documentation, counseling the patient, and discussing with other team members." ASSESSMENT ASSESSMENT Assessment Date of Service: Aug 31, 2024 Billing Provider: MU HALEY MD Common Visit Codes: 78423-BNJ/OBS DISCH DAY <30MIN MU HALEY MD Sep 01, 2024 11:19
== END 2024-08-31 21:31 | disposition left against medical advice (07) | DRG 53 ==
LOC: ER 01:22 → EDBD 01:22 → OVERFLOW 06:57
PROVIDERS: ADMIT Hospitalist; ATTEND Hospitalist
DX: G40.409 Other generalized epilepsy and epileptic syndromes, not intractable, without status epilepticus (principal); E87.6 Hypokalemia; G43.909 Migraine, unspecified, not intractable, without status migrainosus; R63.4 Abnormal weight loss; Z68.1 Body mass index [BMI] 19.9 or less, adult; Z82.49 Family history of ischemic heart disease and other diseases of the circulatory system; Z53.29 Procedure and treatment not carried out because of patient's decision for other reasons
CPT/HCPCS: 36415; 70450; 70545; 70551; 71045; 80053; 80320; 85025; 96361; 96374; G0378; J2405

== ENCOUNTER 2025-01-17 03:26 | Emergency (ER) | payer MEDICAID ==
[~2025-01-17] VITALS: Ht 167.6 cm; Wt 55.0 kg
--- NOTE | 2025-01-17 03:54 | ED.PDOC ---
HPI (NEURO) HPI Comments 24-year-old female with a past medical history of seizure disorder, has come to the ER today via EMS with chief complaints of 1 episode of tonic-clonic seizure. As per EMS, patient was found by her family in the bathroom floor, seizing, and had hit her head in the counter causing a partial-thickness laceration on her forehead. Patient had slight postictal confusion as well. Last seizure was 1 week ago. EMS informed that patient has been on topiramate and Vimpat. On inquiry, patient states that she has been noncompliant to her medications for the past week as she ran out of prescription. On initial assessment, patient is A&O x4, slightly confused and there is bleeding 3 cm laceration on her forehead. Chief Complaint: Seizure Time Seen by MD: 03:36 Primary Care Provider: UNKNOWN NAME Reviewed Notes: Medications, Allergies Information Source: Patient, Emergency Med Personnel Mode of Arrival: EMS Severity: Moderate Timing: Minutes Duration: Minutes Prehospital treatment: None Seizure Quality: Tonic-clonic Seizure Location: Generalized Onset: At rest Circumstances: Spontaneous Symptoms: None Before: Normal During: LOC After: Confusion History of: Seizure Disorder Past Medical History PAST MEDICAL HISTORY: Seizures Surgical History: Denies all surgeries LEGAL ADMINISTRATIVE SECRETARY History: No Pertinent LEGAL ADMINISTRATIVE SECRETARY History Family History Family History: Reviewed,noncontributory to illness Social History Smoker: Non-Smoker Alcohol: Denies ETOH Use Drugs: Denies Drug Use Lives In: Home Constitutional: denies: chills, diaphoresis, fatigue, fever, malaise, sweats, weakness, others EENTM: denies: blurred vision, double vision, ear bleeding, ear discharge, ear drainage, ear pain, ear ringing, eye pain, eye redness, hearing loss, mouth pain, mouth swelling, nasal discharge, nose bleeding, nose congestion, nose pain, photophobia, tearing, throat pain, throat swelling, voice changes, others Respiratory: denies: cough, hemoptysis, orthopnea, SOB at rest, shortness of breath, SOB with excertion, stridor, wheezing, others Cardiovascular: denies: chest pain, dizzy spells, diaphoresis, Dyspnea on exertion, edema, irregular heart beat, left arm pain, lightheadedness, palpitat ions, PND, syncope, others Gastrointestinal: denies: abdomen distended, abdominal pain, blood streaked bow els, constipated, diarrhea, dysphagia, difficulty swallowing, hematemesis, melena, nausea, poor appetite, poor fluid intake, rectal bleeding, rectal pain, vomiting, others Genitourinary: denies: abnormal vagina bleeding, burning, dyspareunia, dysuria, flank pain, frequency, hematuria, incontinence, pain, , vagina discharge, urgency, others Neurological: reports: seizure; denies: dizziness, fainting, headache, left sided numbness, left sided weakness, numbness, paresthesia, pre-existing deficit, right sided numbness, right sided weakness, speech problems, tingling, tremors, weakness, others Musculoskeletal: denies: back pain, gout, joint pain, joint swelling, muscle pain, muscle stiffness, neck pain, others Integumetry: denies: bruises, change in color, change in hair/nails, dryness, laceration, lesions, lumps, rash, wounds, others Allergic/Immunocompromised: denies: Difficulty Healing, Frequent Infections, Hives, Itching, others Hematologic/Lymphatic: denies: anemia, blood clots, easy bleeding, easy bruising, swollen glands, others Endocrine: denies: excessive hunger, excessive sweating, excessive thirst, excessive urination, flushing, intolerance to cold, intolerance to heat, unexplained weight gain, unexplained weight loss, others Psychiatric: denies: anxiety, bipolar disorder, depression, hopeless, panic di sorder, schizophrenia, sleepless, suicidal, others Physical Exam General Appearance: Other (Slightly confused, A&O x4) HEENT: Other (3 cm partial-thickness laceration present in the forehead, slight scraping of the nose) Neck: Non-Tender, Normal, Normal Inspection Respiratory: No Accessory Muscle Use, No Respiratory Distress, Normal Breath Sounds Cardiovascular: No JVD, No Murmur, Regular Rate/Rhythm Breast Exam: Deferred Gastrointestinal: Non Tender Genitalia: Deferred Pelvic: Deferred Rectal: Deferred Extremities: Normal inspection, No pedal edema Neurologic: Other (Slightly confused) Cerebellar Function: Unable to Test Reflexes: Normal Skin: Lacerations (3 cm laceration on forehead) Lymphatic: NOT DONE EKG EKG : Pulse Rate (adult): 82 Doole: Normal Cardiac Rhythm: NSR Block: None ST: Nonsp Was a procedure done? Was a procedure done?: Yes Sedation Sedation?: No Informed consent obtained: Yes Laceration Repair : Location Forehead area Length 3cm Anesthetic: Lidocaine, Without epi Laceration Repair Prep: Saline, Manual Scrub Laceration Repair Wound Comple: epidermis/dermis repair Laceration Repair: Number of sutures (Tooth sutures), Skin, Size (Five 0 Ethilon), Nylon, Simple Risks, benefits, and alternati: Yes Differential Diagnosis (SZ) Seizure: Other (Breakthrough tonic-clonic seizure) X-Ray, Labs, Meds, VS Vital Signs Date Time Temp Pulse Resp B/P (MAP) Pulse Ox O2 Delivery O2 Flow Rate FiO2 01/17/25 04:40 82 01/17/25 03:56 98.2 86 16 112/48 (69) 99 98.2 01/17/25 03:35 98.5 92 16 103/68 98 98.5 Lab Test 01/17/25 03:47 Range/Units White Blood Count 9.5 4.4-10.8 10^3/uL Red Blood Count 4.53 4.0-5.20 10^6/uL Hemoglobin 12.1 L 12.2-16.2 g/dL Hematocrit 37.4 36.0-46.0 % Mean Corpuscular Volume 82.5 80.0-100.0 fL Mean Corpuscular Hemoglobin 26.7 L 28.0-32.0 pg Mean Corpuscular Hemoglobin Concent 32.4 32.0-36.0 g/dL Red Cell Distribution Width 16.0 H 11.8-14.3 % Platelet Count 318 140-450 10^3/uL Mean Platelet Volume 7.6 6.9-10.8 fL Neutrophils (%) (Auto) 58.5 37.0-80.0 % Lymphocytes (%) (Auto) 33.8 10.0-50.0 % Monocytes (%) (Auto) 5.7 0.0-12.0 % Eosinophils (%) (Auto) 1.4 0.0-7.0 % Basophils (%) (Auto) 0.6 0.0-2.0 % Neutrophils # (Auto) 5.5 1.6-8.6 10 ^3/uL Lymphocytes # (Auto) 3.2 0.4-5.4 10 ^3/uL Monocytes # (Auto) 0.5 0-1.3 10 ^3/uL Eosinophils # (Auto) 0.1 0-0.8 10 ^3/uL Basophils # (Auto) 0.1 0-0.2 10 ^3/uL Nucleated Red Blood Cells 0.1 % Sodium Level 142 136-145 mmol/L Potassium Level 3.8 3.5-5.1 mmol/L Chloride Level 110 H 98-107 mmol/L Carbon Dioxide Level 20 20-31 mmol/L Anion Gap 12 5-15 Blood Urea Nitrogen 8 L 9-23 mg/dL Creatinine 0.70 0.550-1.02 mg/dL Glomerular Filtration Rate Calc 124 >90 mL/min BUN/Creatinine Ratio 11.4 10.0-20.0 Serum Glucose 86 74-106 mg/dL Calcium Level 9.1 8.7-10.4 mg/dL Current Medications Medications (Trade) Dose Ordered Sig/Shaan Route Start Time Stop Time Status Last Admin Lidocaine HCl (Xylocaine 1%) 5 ml ONCE ONCE ID 01/17/25 03:45 01/17/25 03:46 DC 01/17/25 04:50 Acetaminophen (Tylenol Tablet) 650 mg ONCE ONCE PO 01/17/25 05:15 01/17/25 05:16 01/17/25 05:09 Images Reviewed?: Images reviewed and evaluated by me Time of 1ST Reevaluation: 04:30 Reevaluation 1ST: Improved Patient Education/Counseling: Diagnosis, Treatment Family Education/Counseling: No Family Present Comments Patient came to the ER due to seizure causing partial-thickness laceration on her forehead. CBC and BMP were unremarkable. EKG showed sinus rhythm. For the 3 cm laceration 2 stitches were placed under aseptic precautions. Patient's CT scan showed 'no acute intracranial process'.. Patient is now stable is being discharged. Patient and her family has been counseled regarding the importance of continuation of antiseizure medications and been counseled regarding follow up with the neurologist. Patient and family have communicated understanding Departure 1 Departure Time of Disposition: 05:00 Impression: Primary Impression: Breakthrough seizure Additional Impression: Laceration of forehead Disposition: HOME / SELF CARE / HOMELESS Condition: Stable e-Prescriptions Topiramate (Topamax) 200 Mg Tab 200 MG PO BID for 30 Days, #60 TAB 5 Refills Prov: MER MORRIS MD 01/17/25 Lacosamide (Vimpat) 200 Mg Tab 200 MG PO BID for 30 Days, #60 TAB 5 Refills Prov: MER MORRIS MD 01/17/25 Discharged With: Self Critical Care Note Critical Care Time?: No Stability Stability form required: No Heart Score Heart Score: Heart Score Response (Comments) Value History N/A 0 EKG N/A 0 Age N/A 0 Risk Factors N/A 0 Troponin N/A 0 Total 0 CLAUDIA BUSTOS RESIDENT Jan 17, 2025 03:54 MER MORRIS MD Jan 17, 2025 04:40
[2025-01-17 03:56] VITALS: BP 112/48; TEMP 98.2
[2025-01-17 04:08] LABS: Hemoglobin 12.1 g/dL (12.2-16.2)
[2025-01-17 04:09] LABS: Potassium 3.8 mmol/L (3.5-5.1); Sodium 142 mmol/L (136-145)
[2025-01-17 04:10] LABS: Anion Gap 12 (5-15); Carbon Dioxide 20 mmol/L (20-31)
[2025-01-17 04:11] LABS: Calcium 9.1 mg/dL (8.7-10.4)
[2025-01-17 04:12] LABS: Hematocrit 37.4 % (36.0-46.0); Mean Corpuscular Hemoglobin 26.7 pg (28.0-32.0); Mean Corpuscular Volume 82.5 fL (80.0-100.0); Nucleated Red Blood Cells % 0.1 %
[2025-01-17 04:15] LABS: BUN/Creatinine Ratio 11.4 (10.0-20.0); Glucose 86 mg/dL (74-106)
[2025-01-17 04:18] LABS: Blood Urea Nitrogen 8 mg/dL (9-23); Chloride 110 mmol/L (98-107)
[2025-01-17 04:31] VITALS: PULSE 86; RESP 16; O2SAT 99
--- NOTE | 2025-01-17 04:39 | DVH ---
EXAM: CT HEAD WITHOUT CONTRAST HISTORY: Seizure, patient hit her head during fall COMPARISON: CT HEAD WITHOUT CONTRAST on DOS: 08/31/24, CT HEAD WITHOUT CONTRAST on DOS: 06/24/24, CT HEAD WITHOUT CONTRAST on DOS: 07/23/22 TECHNIQUE: Noncontrast axial CT images of the head were performed. Sagittal and coronal reformatted images were obtained. This CT exam was performed using 1 or more of the following dose reduction techniques: Automated exposure control, adjustment of the mA and/or kv according to patient size, or the use of iterative reconstruction techniques. Radiation Dose: CTDI volume is 57.19 mGy. Dose-length product is 1125.37 mGy*cm FINDINGS: No intracranial hemorrhage, mass, midline shift, hydrocephalus, or evidence of acute large vessel infarct. The partially-visualized paranasal sinuses are clear. 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 The bilateral mastoid air cells and middle ear spaces are clear. No cranial fracture. There is mild frontal scalp scarring. 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 IMPRESSION: No acute intracranial process.
[2025-01-17 04:40] VITALS: PULSE 82
[2025-01-17] MEDS: LIDOCAINE 1% (LOCAL ANESTH.) PF 5ml SDV ID ONE (04:50)
[2025-01-17] MEDS: NEOMYCIN-BACITRACIN-POLYM UNITDOSE PKG TOP OINT TOP ONE (04:51)
[2025-01-17] MEDS ORDERED: LACO200T PO (05:08)
[2025-01-17] MEDS ORDERED: TOPI200T37 PO (05:08)
[2025-01-17] MEDS: ACETAMINOPHEN 325 MG TAB PO ONE (05:09)
--- NOTE | 2025-01-17 06:08 | ECG ---
[facility] Test Date: 2025-01-17 Test Time: 04:38:05 Pat Name: PALOMO BAILEY Department: ED Room: Gender: F [employer]: KATELYN : 2000 Requested By: CLAUDIA BUSTOS Order Number: [id number] Reading MD: Yassine Freire Measurements Intervals [place] Rate: 82 P: 78 OK: 139 QRS: 77 QRSD: 85 T: 48 QT: 368 QTc: 430 Interpretive Statements Sinus rhythm Electronically Signed On 01-17-2025 17:51:01 PST by Yassine Freire Please click the below link to view image of tracing.
== END 2025-01-17 05:33 | disposition home or self-care (01) ==
LOC: EDSEX 03:26 → EDBD 03:26 → ER 03:26
DX: S01.81XA Laceration without foreign body of other part of head, initial encounter (principal); G40.909 Epilepsy, unspecified, not intractable, without status epilepticus; X58.XXXA Exposure to other specified factors, initial encounter; Y93.89 Activity, other specified; Y92.89 Other specified places as the place of occurrence of the external cause; Y99.8 Other external cause status
CPT/HCPCS: 12013; 36415; 70450; 80048; 85025; 93005; 99284; A4649